=== PATIENT | male | born 1985 | race Caucasian/White ===

== ENCOUNTER 2024-08-06 03:41 | Inpatient (IN) | payer OTHER, SELFPAY ==
[2024-08-05 20:52] VITALS: BP 163/95
--- NOTE | 2024-08-05 20:52 | ED.GENMED ---
ED Provider Triage
<Aditi Tyson PA-C - Last Filed: 08/05/24 21:05>
-
Patient seen by provider in Triage?: Seen in Triage
A medical screening examination has been initiated by a qualified medical provider. Based on the assessment performed at this time, it has been determined that an emergent medical condition may exist and the patient has been informed that further
medical evaluation and possible additional diagnostic testing may be needed.
HPI: This is a medical evaluation conducted in person to initiate diagnostic evaluation and provide initial therapeutics. Please see further documentation by the treating clinician.
GENERAL: Alert , chronic ill-appearing, older than stated age
Poor dentition
ENT: No visible abnormalities
LUNGS: Diminished, mild tachypnea
Abdomen: Distended, indurated edema specially on the left lateral aspect which looks slightly pinkish which is nontender, no obvious hernia
Legs are covered by his pants but appear edematous
NEUROLOGICAL: Alert and oriented
SKIN: Skin intact. No visible changes.
PSYCH: Normal and appropriate interaction.
39 y/o M
h/ o hep c, opiate dependence on methadone
says over the past 3 weeks or so he has noticed swelling in his legs and into his abdomen
he htought maybe his abdomen was swollen because of a hernia but he has not really had pain
he has had some HOYOS
no chest pain, fever, vomiting, diarrhea
denies alcohol abuse, cirrhosis
Patient has a pitting edema in his abdomen that appears to have anasarca, slightly discolored on the left side, could be ascites due to liver failure or fluid overload due to CHF, will workup with labs and a CT, chest x-ray
History of Present Illness
<Aditi Tyson PA-C - Last Filed: 08/05/24 21:05>
General
Chief Complaint: Swelling
Time Seen by Provider: 08/05/24 23:18
<Anderson Gan DO - Last Filed: 08/06/24 02:12>
General
Source: patient
Exam Limitations: none
Nursing documentation reviewed up to this point in time: agreed with
History of Present Illness
History of Present Illness:
39-year-old male presents to the emergency department with swelling. Patient has a history of hepatitis C and does report some leg swelling normally but states that this is worse. For the last few weeks this is been worsening. Patient reports no
alcohol use. He does smoke tobacco and marijuana. Patient states that he has never had ascites before. He states that people have been telling him that his skin tone looks off. Patient states that he typically did not use IV heroin. He tended
to snorted instead. He is not sure where he got his hepatitis C from. He does state that he has spent a lot of time in custodial and thinks he might of picked it up there. Patient is on methadone. He moved to [place] recently to live with his dad
but he states that his dad recently. He is due to move to [place] once he wraps up his dad's estate. He is on disability and does not work
Vital signs are stable. Patient not hypoxic
Nursing note reviewed. I agree with nursing documentation up to this point in time.
Home Meds and allergies reviewed.
NUMBER AND COMPLEXITY OF PROBLEMS ADDRESSED AT THE ENCOUNTER
� Chronic conditions affecting care: Hepatitis C, IV drug abuse, on methadone, tobacco abuse
� Acute Exacerbation and/or Progression of Chronic Illness: Hepatitis C
� Differential Diagnosis includes: Hepatitis exacerbation, liver failure pancreatitis, gallbladder, mass, alcoholic hepatitis, cirrhosis, HA
AMOUNT AND/OR COMPLEXITY OF DATA TO BE REVIEWED AND ANALYZED
I performed an independent evaluation of the following and my interpretation is:
EKG: EKG shows sinus rhythm rate of of 87 with a prolonged QT interval of 575 ms.
Pulse Ox: Not Hypoxic
Bed Rubber: Sinus Rhythm
CT:
X-rays:
Ultrasound:
Laboratory Studies:
Other:
Review of other/old records:
Clinical information was obtained by an independent historian:
Prescriptions/Medications Considered but not given:
Further testing considered but not performed:
RISK OF COMPLICATIONS AND/OR MORBIDITY OR MORTALITY OF PATIENT MANAGEMENT
Social determinants of health affecting care: Poor social support. Patient lives alone with no familial support. He is on methadone. Does not have a family doctor.
Discussion with other providers: Hospitalist for admission to the hospital
Escalation of care including admission/observation vs risk of discharge considered: After being observed in the emergency department, patient is not stable for discharge. Patient will be admitted to the hospitalist service
CRITICAL CARE NOTE:
Critical care statement: A total of 30 minutes of critical care time was provided for this patient. This time is separate from time utilized to perform the aforementioned documented procedures. Aggregate critical care time includes only time
during which I was engaged in work directly related to the patient's care, as described above, whether at the bedside or elsewhere in the Emergency Department.
Total Time (exclusive of procedures):30
Update:
Past History
<Aditi Tyson PA-C - Last Filed: 08/05/24 21:05>
Past History
ED Past Medical History: Psychiatric (ADHD, bipolar)
Social History
Tobacco: Smoker
Drug: Former user (on methadone)
Living: with family
Review of Systems
<Anderson Gan DO - Last Filed: 08/06/24 02:12>
Review of Systems
Allergies reviewed?: Yes
All Other Systems: ROS reviewed and negative except as documented in HPI and ROS
Musculoskeletal: Reports edema
Neurological: Reports weakness
Hematologic/Lymphatic: Reports other (Swelling)
Psychiatric: Reports anxiety
Phy Exam
<Anderson Gan DO - Last Filed: 08/06/24 02:12>
General Physical Exam
General Presentation: no apparent distress
General age: appears older than age
General Skin: warm, dry and other (Jaundiced)
General Habitus: debilitated and poor hygiene
General Mental: alert
General Hydration: appears well hydrated
ENT Exam
ENT Exam: EOMI and normocephalic
Additional ENT: Poor dentition
Eye Exam
Eye Exam: PERRL and EOMI
Scleral Findings: icteric sclera: Bilateral
Cardiovascular Exam
Cardiovascular Exam: regular rate/rhythm
Pulmonary Exam
Pulmonary Exam: lungs clear and no respiratory distress
Gastrointestinal Exam
Gastrointestinal Exam: ascites, distended, hepatomegaly and other (Abdominal edema in addition to ascites)
Auscultation of Abdomen: normal
Liver Exam: ascites, edema of legs, hepatomegaly and jaundice
Course
<Aditi Tyson PA-C - Last Filed: 08/05/24 21:05>
Orders/Labs/Results
Orders:
Orders
08/05/24 20:57
Electrocardiogram (*1) Urgent
Reason for Study: Abdominal Pain
EKG- Treatment ONCE
08/05/24 23:36
Acetaminophen Urgent
Comment: ADD ON
Ammonia Urgent
C-Reactive Protein Urgent
Comment: ADD ON
Complete Blood Count/With Diff Urgent
Comprehensive Metabolic Panel Urgent
Erythrocyte Sed Rate Urgent
LDH Urgent
Comment: ADD ON
Lipase Urgent
NT-proBNP Urgent
08/05/24 23:54
Hepatitis A IgM Antibody Urgent
Hepatitis B Core Ab, IgM Urgent
Hepatitis B Surface Antibody Urgent
Hepatitis B Surface Antigen Urgent
Hepatitis C Antibody Urgent
08/05/24 23:55
Add On- LAB Urgent
Tests Added?: ESR, CRP
Lactic Acid Q4H
Comment: CANCEL 2nd LACTIC ACID IF 1st LACTIC ACID IS LESS THAN 2
Prothrombin Time Urgent
08/06/24 00:15
CR Chest - 2 Views Urgent
Reason For Exam: edema, hoyos
08/06/24 00:17
Hepatitis B Core Ab, Total Urgent
08/06/24 00:20
CT Abd/Pel (IV only)-DH only Urgent
Reason For Exam: anasarca; ;pitting edema, pain
08/06/24 03:55
Lactic Acid Q4H
Comment: CANCEL 2nd LACTIC ACID IF 1st LACTIC ACID IS LESS THAN 2
Abnormal Lab Results
08/05/24 08/06/24
23:36 00:17
RBC 3.79 L 10^6/uL
(4.70-6.10)
MCV 106.3 H fL
(80.0-94.0)
MCH 36.4 H pg
(27.0-31.0)
RDW 14.6 H %
(11.5-14.5)
Plt Count 88 L 10^3/uL
(130-400)
MPV 10.9 H fL
(7.4-10.4)
Absolute Lymphs (auto) 1.1 L 10^3/uL
(1.2-3.4)
Lymphocytes % 15.7 L %
(20.5-51.1)
ESR 49 H mm/hour
(0-20)
PT 19.8 H Sec
(11.4-14.6)
Sodium 133 L mmol/L
(135-145)
BUN 8 L mg/dl
(9-20)
Glucose 51 L* mg/dl
(70-99)
Calcium 8.1 L mg/dl
(8.4-10.2)
Total Bilirubin 4.9 H mg/dl
(0.2-1.3)
Ammonia < 9 L umol/L
(9-30)
C-Reactive Protein 26.80 H mg/L
(0.0-10.00)
Albumin 2.9 L g/dl
(3.5-5.0)
Acetaminophen < 10 L ug/ml
(10-30)
08/05/24 23:36
08/05/24 23:36
Vital Signs
Initial and Last Documented VS:
Initial Vital Signs
Temp Pulse Resp BP Pulse Ox
97.6 F 56 18 163/95 99
08/05/24 20:52 08/05/24 20:52 08/05/24 20:52 08/05/24 20:52 08/05/24 20:52
Last Documented Vital Signs
Temp Pulse Resp BP Pulse Ox
97.6 F 75 12 133/84 99
08/05/24 20:52 08/06/24 01:18 08/06/24 01:18 08/06/24 01:17 08/05/24 20:52
<Anderson Gan, DO - Last Filed: 08/06/24 02:12>
Orders/Labs/Results
Orders:
Orders
08/05/24 20:57
Electrocardiogram (*1) Urgent
Reason for Study: Abdominal Pain
EKG- Treatment ONCE
08/05/24 23:36
Acetaminophen Urgent
Comment: ADD ON
Ammonia Urgent
C-Reactive Protein Urgent
Comment: ADD ON
Complete Blood Count/With Diff Urgent
Comprehensive Metabolic Panel Urgent
Erythrocyte Sed Rate Urgent
LDH Urgent
Comment: ADD ON
Lipase Urgent
NT-proBNP Urgent
08/05/24 23:54
Hepatitis A IgM Antibody Urgent
Hepatitis B Core Ab, IgM Urgent
Hepatitis B Surface Antibody Urgent
Hepatitis B Surface Antigen Urgent
Hepatitis C Antibody Urgent
08/05/24 23:55
Add On- LAB Urgent
Tests Added?: ESR, CRP
Lactic Acid Q4H
Comment: CANCEL 2nd LACTIC ACID IF 1st LACTIC ACID IS LESS THAN 2
Prothrombin Time Urgent
08/06/24 00:15
CR Chest - 2 Views Urgent
Reason For Exam: edema, hoyos
08/06/24 00:17
Hepatitis B Core Ab, Total Urgent
08/06/24 00:20
CT Abd/Pel (IV only)-DH only Urgent
Reason For Exam: anasarca; ;pitting edema, pain
08/06/24 03:55
Lactic Acid Q4H
Comment: CANCEL 2nd LACTIC ACID IF 1st LACTIC ACID IS LESS THAN 2
Abnormal Lab Results
08/05/24 08/06/24
23:36 00:17
RBC 3.79 L 10^6/uL
(4.70-6.10)
MCV 106.3 H fL
(80.0-94.0)
MCH 36.4 H pg
(27.0-31.0)
RDW 14.6 H %
(11.5-14.5)
Plt Count 88 L 10^3/uL
(130-400)
MPV 10.9 H fL
(7.4-10.4)
Absolute Lymphs (auto) 1.1 L 10^3/uL
(1.2-3.4)
Lymphocytes % 15.7 L %
(20.5-51.1)
ESR 49 H mm/hour
(0-20)
PT 19.8 H Sec
(11.4-14.6)
Sodium 133 L mmol/L
(135-145)
BUN 8 L mg/dl
(9-20)
Glucose 51 L* mg/dl
(70-99)
Calcium 8.1 L mg/dl
(8.4-10.2)
Total Bilirubin 4.9 H mg/dl
(0.2-1.3)
Ammonia < 9 L umol/L
(9-30)
C-Reactive Protein 26.80 H mg/L
(0.0-10.00)
Albumin 2.9 L g/dl
(3.5-5.0)
Acetaminophen < 10 L ug/ml
(10-30)
08/05/24 23:36
08/05/24 23:36
Vital Signs
Initial and Last Documented VS:
Initial Vital Signs
Temp Pulse Resp BP Pulse Ox
97.6 F 56 18 163/95 99
08/05/24 20:52 08/05/24 20:52 08/05/24 20:52 08/05/24 20:52 08/05/24 20:52
Last Documented Vital Signs
Temp Pulse Resp BP Pulse Ox
97.6 F 75 12 133/84 99
08/05/24 20:52 08/06/24 01:18 08/06/24 01:18 08/06/24 01:17 08/05/24 20:52
<Anderson Gan DO - Last Filed: 08/06/24 02:12>
*Critical Care Note
Total Time (30-74mins, 75-104mins- exclusive of procedures): 30
<Anderson Gan DO - Last Filed: 08/06/24 02:12>
Update Note
Update Note:
IMPRESSION
Nodular cirrhotic liver. Large amount of ascites. Free fluid decreases sensitivity for inflammation. Varices. Mild splenomegaly.
Mild thickening of the small and large bowel. No pneumatosis or free air. This is probably due to low protein state/ascites (portal colopathy), other differential considerations include enterocolitis/infection less likely ischemic bowel or
inflammatory bowel disease.
Anasarca
Mild heterogeneity in the gallbladder may reflect sludge versus noncalcified gallstones, no biliary dilatation. Normal diameter appendix. Diverticulosis
ED Attending Note
<Aditi Tyson PA-C - Last Filed: 08/05/24 21:05>
-
Portions of this chart may have been created with voice recognition software.� Occasional wrong word or��sound alike� substitutions may have occurred due to the inherent limitations of voice recognition software.
Discharge Plan
Departure
Patient Disposition: Admit
Date of Disposition: 08/06/24
Time of Disposition: 02:05
Admit to: IMU
Presentation/result/management discussed w/ accepting MD/DO: Hospitalist
Discharge Problem:
Jaundice, Ascites, Prolonged QT interval, History of substance abuse, Tobacco abuse, Edema, Hypoglycemia
Prescriptions:
No Action
Medical Marijuana
1 inh inhalation QIDPRN PRN (Reason: mild pain/anxiety)
methadone liquid
150 mg PO DAILY@1100
Patient Comments:
08/05/24: Goes to [facility], unable to call and confirm dose at this time.
Interventions
Interventions:
*Risk Screen - Suicide Last Done: 08/05/24 20:52
*General Assessment Last Done: 08/05/24 20:52
*Neglect/Abuse Screening Last Done: 08/05/24 20:52
ED- Fall Risk Assessment Last Done: 08/06/24 00:26
*ED COVID-19 Vaccine History Last Done: 08/05/24 20:52
ED- Cardiac Assessment Last Done: 08/06/24 00:26
ED- Pulmonary Assessment Last Done: 08/06/24 00:26
ED-Skin Assessment Last Done: 08/06/24 00:26
Discharge Date and Time
Print Language: WALLISIAN
[2024-08-05 23:28] VITALS: BMI 36.2
[2024-08-05 23:45] VITALS: BP 154/89
[2024-08-06] VITALS (15 sets, daily range): BP systolic 71–146; BP diastolic 50–84; BMI 34.2
[2024-08-06 00:06] LABS: % Basophils 0.6 % (0-2); % Eosinophils 1.2 % (0-6); % Immature Granulocytes 0.3 % (0-0.5); % Lymphocytes 15.7 % (20.5-51.1); % Monocytes 8.7 % (1.7-9.3); % Neutrophils 73.5 % (42.2-75.2); Absolute Eosinophils 0.1 10^3/uL (0-0.7); Absolute Lymphocytes 1.1 10^3/uL (1.2-3.4); Absolute Monocytes 0.6 10^3/uL (0.1-0.6); Ammonia < 9 umol/L (9-30); Hematocrit 40.3 % (39.0-52.0); Hemoglobin 13.8 g/dL (13.0-18.0); Mean Corp Hgb Conc. 34.2 g/dL (33.0-37.0); Mean Corpuscular Hgb 36.4 pg (27.0-31.0); Mean Corpuscular Volume 106.3 fL (80.0-94.0); Mean Platelet Volume 10.9 fL (7.4-10.4); Nucleated Red Blood Cells % 0 % (-); Platelet Count 88 10^3/uL (130-400); Red Blood Cell Count 3.79 10^6/uL (4.70-6.10); Red Cell Dist. Width 14.6 % (11.5-14.5); White Blood Cell Count 6.8 10^3/uL (4.8-10.8)
[2024-08-06 00:11] LABS: ALT (SGPT) 30 U/L (0-50); AST (SGOT) 59 U/L (17-59); Albumin 2.9 g/dl (3.5-5.0); Alkaline Phosphatase 121 U/L (38-126); Blood Urea Nitrogen 8 mg/dl (9-20); Calcium 8.1 mg/dl (8.4-10.2); Carbon Dioxide 25 mmol/L (22-30); Chloride 99 mmol/L (98-107); Estimated Creatinine Clearance > 125 ml/min; Glucose 51 mg/dl (70-99); Lipase 171 U/L (23-300); Potassium 3.6 mmol/L (3.5-5.1); Sodium 133 mmol/L (135-145); Total Bilirubin 4.9 mg/dl (0.2-1.3); Total Protein 7.8 g/dl (6.3-8.2); eGFR > 60.00
[2024-08-06 00:17] LABS: NT-proBNP 354 pg/ml
[2024-08-06 00:30] LABS: Acetaminophen < 10 ug/ml (10-30); LDH 231 U/L (120-246)
[2024-08-06 00:37] LABS: INR 1.65; PT 19.8 Sec (11.4-14.6)
[2024-08-06 00:50] LABS: Erythrocyte Sed Rate 49 mm/hour (0-20)
[2024-08-06 01:14] LABS: Glucose - Point of Care 81 mg/dl (70-99)
[2024-08-06 01:17] LABS: Hepatitis B Surface Antigen Negative (Negative)
[2024-08-06 01:21] LABS: Hepatitis A IgM Antibody Negative (Negative)
[2024-08-06 01:35] LABS: Hepatitis B Surface Antibody Positive; Hepatitis C Antibody Reactive (Negative)
[2024-08-06 02:41] LABS: Hepatitis B Core Ab, Total Negative (Negative)
--- NOTE | 2024-08-06 03:24 | HPS.HSE ---
Family Physician
-
Family Physician: Malik Mcguire DO
Chief Complaint
-
Swelling, Jaundice
History of Present Illness
Patient is a 39y M with PMH significant for Hep C who presents to ED complaining of swelling and discoloration. Patient states that he has appreciated significant swelling in his legs and abdomen over the past couple of weeks. This has become
progressively worse in that time. He has some abdominal discomfort that seems to move about depending on his position. No fevers / chills, N/V/D. No chest pain or dyspnea.
Patient was diagnosed with Hep C in 2017 or 2018. He states that he has never sought treatment for this.
He is on methadone for history of opioid addiction (heroin). He has been mostly clean for the past 3-4 years - though he admits he relapsed briefly in February 2024 after his father .
He was at his methadone clinic today when the nurse there commented that he appeared jaundiced and recommended that he go to the ED.
Patient denies any prior history of jaundice, ascites, cirrhosis, etc.
Medical History
Past Medical History
Past Medical History: Reports Other
Additional Past Medical History:
Hepatitis C
Opioid Use Disorder
Past Surgical History: Reports None
Social History
Tobacco: Smoker (Current every day smoker. 1 ppd x 20 years.)
Alcohol: None
Drug: Former User (History of heroin use. Primarily intranasal but did use IVDA on multiple occasions. Last use February 2024.)
Family History
Family History: Not pertinent
Allergies / Home Medications
Allergies reflects when Allergies were last updated in [facility].
Home Medications with original date entered in [facility]
Allergy/Medication List:
Allergies
Allergy/AdvReac Type Severity Reaction Status Date / Time
No Known Allergies Allergy Verified 08/05/24 20:57
Home Medications
Medical Marijuana 1 inh inhalation QIDPRN PRN mild pain/anxiety 08/05/24
methadone 150 mg PO DAILY@1100 08/05/24
Review of Systems
-
History Source: Patient
A 12 point ROS was completed and negative except as noted: Yes
Constitutional: Reports Fatigue; Denies Fever or Chills
Respiratory: Denies Cough or Trouble Breathing
Cardiac: Denies Chest Pain or Palpitations
Abdomen/GI: Reports Abdominal Pain; Denies Nausea, Vomiting, Diarrhea, Bloody Stools or Black Stools
: Denies Dysuria or Frequency
Musculoskeletal: Reports Edema
Neurological: Denies Dizzy or Headache
Physical Exam
Vital Signs
Vital Signs
Temp Pulse Resp BP Pulse Ox
97.6 F 75 19 133/70 99
08/05/24 20:52 08/06/24 02:00 08/06/24 02:00 08/06/24 02:00 08/05/24 20:52
Physical Exam
General: Other (Chronically ill-appearing male who appears older than stated 39 years. No acute distress.)
HEENT: Other (Poor dentition. MMM. Neck supple.)
Respiratory: Clear; No Wheezes, Rales or Rhonchi
Cardiac: S1/S2, Regular Rhythm and Murmur (II/ NORMA)
GI: Other (Abdomen is markedly distended and firm with pos fluid wave. Indurated along the LLQ area. No rebound / guarding. Pos striae.)
Musculoskeletal: No Clubbing, No Cyanosis and Other (3-4+ pitting edema b/l LEs into the thighs.)
Skin: Jaundice
Neuro: AO x 3
Laboratory Results
-
08/05/24 23:36
08/05/24 23:36
Laboratory Results
PT 19.8 Sec (11.4-14.6) H 08/06/24 00:17
INR 1.65 08/06/24 00:17
Lactic Acid 2.0 mmol/L (0.7-2.0) 08/06/24 00:17
Total Bilirubin 4.9 mg/dl (0.2-1.3) H 08/05/24 23:36
AST 59 U/L (17-59) 08/05/24 23:36
ALT 30 U/L (0-50) 08/05/24 23:36
Alkaline Phosphatase 121 U/L (38-126) 08/05/24 23:36
Lipase 171 U/L (23-300) 08/05/24 23:36
Impression/Plan
-
A/P: Patient is a 39y M with PMH significant for Hep C and opioid use disorder who presents to ED complaining of progressive swelling and newly noted jaundice.
Cirrhosis with Ascites and Thrombocytopenia
- Admit for further evaluation and treatment.
- Cirrhosis newly appreciated and likely secondary to Hep C.
- IV ceftriaxone for now pending fluid analysis.
- IR eval for paracentesis - studies ordered.
- GI eval for additional recommendations.
- Begin diuretic regimen with IV Lasix daily and spironolactone for now.
- Follow I/Os, daily weights, etc.
- MELD-Na = 22.
Hepatitis C
- Initially diagnosed in 2016 - 2017 and likely secondary to prior IVDA.
- GI eval as noted above.
- Would benefit from treatment.
Opioid Use Disorder
- 3-4 years sober and then relapse in February 2024 after father's .
- States no use since that time.
- Follows regularly with methadone clinic.
- Continue methadone once dose confirmed.
DVT Prophylaxis: Lovenox
Code Status: Full
[2024-08-06] MEDS: ROCEPHIN 2000 MG IV (05:16)
[2024-08-06] MEDS: STERILE WATER FOR INJECTION 20 ML IV (05:16)
[2024-08-06 06:45] LABS: Hematocrit 33.9 % (39.0-52.0); Hemoglobin 11.5 g/dL (13.0-18.0); Mean Corp Hgb Conc. 33.9 g/dL (33.0-37.0); Red Blood Cell Count 3.11 10^6/uL (4.70-6.10); Red Cell Dist. Width 14.8 % (11.5-14.5)
[2024-08-06 07:27] LABS: ALT (SGPT) 26 U/L (0-50); AST (SGOT) 52 U/L (17-59); Albumin 2.4 g/dl (3.5-5.0); Alkaline Phosphatase 101 U/L (38-126); Blood Urea Nitrogen 8 mg/dl (9-20); Calcium 7.7 mg/dl (8.4-10.2); Carbon Dioxide 24 mmol/L (22-30); Chloride 102 mmol/L (98-107); Direct Bilirubin 1.7 mg/dl (0.0-0.4); Estimated Creatinine Clearance > 125 ml/min; Glucose 50 mg/dl (70-99); Potassium 3.7 mmol/L (3.5-5.1); Sodium 134 mmol/L (135-145); TSH Reflex To Free T4 4.64 uIU/ml (0.47-4.68); Total Bilirubin 4.4 mg/dl (0.2-1.3); eGFR > 60.00
[2024-08-06 08:01] LABS: Glucose - Point of Care 61 mg/dl (70-99)
--- NOTE | 2024-08-06 08:09 | PHANOTE ---
Addendum entered by Abbie Villa 08/06/24 10:30:
refax mr release form to clinic
Original Note:
med rec note- following up on a hold patient who goes to the [facility] in [facility] called [phone] to fax mr form over to [phone], awaiting fax of verification
--- NOTE | 2024-08-06 08:11 | CON.GI ---
Addendum entered and electronically signed by Aditi Jordan DO 08/06/24 10:59:
The patient was seen and examined by me independently in collaboration with the nurse practitioner.
Past medical history/social history/medications/allergies/family history reviewed.
Lab data and imaging data reviewed.
39 y.o. male with untreated HCV presents with new onset ascites and LE edema, imaging and labs consistent with decompensated cirrhosis. Reports that his father recently , living in his van. Plans to move to [place] with his mother.
Na 134, K 3.7, BUN 8, Cr. 0.7, Glu 50*, Tbili 4.4, Dbili 1.7, AST 52, ALT 26, Alk phos 101, Albumin 2.4, INR 1.65
WBC 7, Hgb 11.5, MCV 109, Plt 75
HAV IgM neg, HBsAg neg, HBcAb neg, HCV Ab+ (VL pending)
HBsAb positive (reflects immunity)
Acetaminophen level <10
Lipase 171
Vit. B12, Folate pending
TSH 4.64
A/P: Decompensated Cirrhosis likely 2/2 untreated HCV c/b thrombocytopenia and ascites
--MELD 3.0 = 21
-- Diagnostic paracentesis today- please obtain cell count, cytology, albumin, protein, will calculate SAAG
-BUN/Cr. WNL, start diuretics
-HCC surveillance with AFP + US/MRI q6 months
-Needs EGD for variceal screening-- outpatient
-Outpatient serologic workup for completeness. Acute hepatitis panel reflects immunity to HBV, should have HAV IgG checked to assess need for vaccination
-annual influenza vaccination
-pneumococcal vaccination
-Avoid NSAIDs
-No EtoH use
-Limit Tylenol use to 2g daily
-Avoidance of raw seafood and shellfish
Hypoglycemia-- concerning, unclear if due to decreased PO intake. No signs of acute liver failure. BS did improve with glucose.
Needs to establish care with Hepatology once he moves to [place]. Given his MELD >20, it is unclear if his degree of decompensation will benefit from treatment of his HCV, as studies suggest patients with advanced cirrhosis who receive DAA Therapy
may not achieve significant long-term improvement in liver function. Ideally, liver transplantation. Needs formal outpatient workup and eval prior to consideration of treatment.
Original Note:
Consultation
-
Date/Time Consultation Requested: 08/06/230
Date/Time Consultation Performed: 08/06/23 0810
Requesting Provider: Tevin Diallo DO
Performing Provider: DEDRA Hancock, Azra Jordan DO
Reason for Consultation: cirrhosis
Medical History
Chief Complaint / HPI
Chief Complaint: swelling
History of Present Illness:
Pt is a 39yo with hx hep C untreated diagnosed 2017, substance abuse on chronic methadone, prior IVDA, ADHD, depression/anxiety with admission with increased swelling and no recent medical care. In review with patient he has history of prior opioid
use, heroin use, and recent relapse with cocaine use in February after his fathers . He has had some social issues with loss of home and now living in in [facility] but plan to move to [place] with his mother. he has noted increased swelling
over last week or so and presents to ER for evaluation. On admission noted with abdominal and LE swelling with jaundice. CT pending with preliminary report with nodular cirrhotic liver and large amount of ascites, varcies, mild Splenomegaly.
thickening of large and small bowel with concern for colonopathy vs enterocolitis, ischemic or IBD. Labs noted with WBC 7, hbg 11.5, platelets 75,000, Na 134, glucose 50, bili 4.4, AST 52, ALT 26, alk phos 101, albumin 2.4, and INR 1.65.
Hepatitis panel noted with + Hep C ab and immunity to hep B.
At this time patient admits to occasional nausea and abdominal pressure with distention. denies dysphagia, GERD, diarrhea, constipation, blood or black in stools. Occasional NSAID use. No prior EGD/colon. No supplement use. No hx tattoos.
Nodular cirrhotic liver. Large amount of ascites. Free fluid decreases sensitivity for inflammation. Varices. Mild splenomegaly.
Mild thickening of the small and large bowel. No pneumatosis or free air. This is probably due to low protein state/ascites (portal colopathy), other differential considerations include enterocolitis/infection less likely ischemic bowel or
inflammatory bowel disease.
Past Medical History
Past Medical History: Other (hep C)
Social History
Tobacco: Smoker
Alcohol: None
Drug: Other (prior opioid, heroin, and recent cocaine use in February after of father)
Living: Alone (currently living in as family home for [employer]-- plan to move with mother in [place])
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
Family History
Family History: Other (father recent -- ? liver, vs kidney vs heart issues, no known hx other GI issues )
Allergies / Home Medications
Allergy/AdvReac Type Severity Reaction Status Date / Time
No Known Allergies Allergy Verified 08/05/24 20:57
�Medication �Instructions �Recorded
Medical Marijuana 1 inh inhalation QIDPRN PRN mild 08/05/24
pain/anxiety
methadone 150 mg PO DAILY@1100 08/05/24
Review of Systems
-
History Source: Patient
Constitutional: Reports Weight Gain and Fatigue
EENT: Reports No Symptoms
Respiratory: Reports Trouble Breathing
Abdomen/GI: Reports Abdominal Pain (with pressure) and Nausea
: Reports Dark Urine
Musculoskeletal: Reports No Symptoms
Skin: Reports No Symptoms, Itching and Other (LE swelling)
Neurological: Reports Weakness
Endocrine: Reports No Symptoms
Hematologic/Lymphatic: Reports No Symptoms
Vital Signs
Temp Pulse Resp BP Pulse Ox
97.6 F 85 20 132/70 99
08/05/24 20:52 08/06/24 08:04 08/06/24 06:45 08/06/24 06:00 08/06/24 04:00
Physical Exam
Exam
General: Other (appears with chronic illness and appears older than stated age )
HEENT: Normocephalic and Other (jaundice , poor dentician )
Respiratory: Clear
Cardiac: Regular Rhythm and Peripheral Edema
GI: Soft, Tender (minimal ) and Distended
Musculoskeletal: No Clubbing and No Cyanosis
Skin: Warm and Dry
Neuro: Awake, Alert and AO x 3
Psych: Calm
Results
WBC 7.0 10^3/uL (4.8-10.8) 08/06/24 05:16
Hgb 11.5 g/dL (13.0-18.0) L 08/06/24 05:16
Hct 33.9 % (39.0-52.0) L 08/06/24 05:16
MCV 109.0 fL (80.0-94.0) H 08/06/24 05:16
Plt Count 88 10^3/uL (130-400) L 08/05/24 23:36
Absolute Neuts (auto) 5.0 10^3/uL (1.4-6.5) 08/05/24 23:36
PT 19.8 Sec (11.4-14.6) H 08/06/24 00:17
INR 1.65 08/06/24 00:17
Sodium 134 mmol/L (135-145) L 08/06/24 05:16
Potassium 3.7 mmol/L (3.5-5.1) 08/06/24 05:16
Chloride 102 mmol/L (98-107) 08/06/24 05:16
Carbon Dioxide 24 mmol/L (22-30) 08/06/24 05:16
BUN 8 mg/dl (9-20) L 08/06/24 05:16
Creatinine 0.7 mg/dL (0.7-1.3) 08/06/24 05:16
Calcium 7.7 mg/dl (8.4-10.2) L 08/06/24 05:16
Total Bilirubin 4.4 mg/dl (0.2-1.3) H 08/06/24 05:16
AST 52 U/L (17-59) 08/06/24 05:16
ALT 26 U/L (0-50) 08/06/24 05:16
Alkaline Phosphatase 101 U/L (38-126) 08/06/24 05:16
Lipase 171 U/L (23-300) 08/05/24 23:36
Hepatitis A IgM Ab Negative (Negative) 08/06/24 00:17
Hep Bs Antibody Positive 08/06/24 00:17
Hep B Core Total Ab Negative (Negative) 08/06/24 00:17
Hep B Core IgM Ab Cancelled 08/06/24 00:17
Hepatitis C Antibody Reactive (Negative) 08/06/24 00:17
Diagnostic Image Results:
08/06/24- CXR- Unremarkable exam
08/06/24 CT a/p pending
(preliminary reading per ER
Nodular cirrhotic liver. Large amount of ascites. Free fluid decreases sensitivity for inflammation. Varices. Mild splenomegaly.
Mild thickening of the small and large bowel. No pneumatosis or free air. This is probably due to low protein state/ascites (portal colopathy), other differential considerations include enterocolitis/infection less likely ischemic bowel or
inflammatory bowel disease.
Anasarca
Mild heterogeneity in the gallbladder may reflect sludge versus noncalcified gallstones, no biliary dilatation. Normal diameter appendix. Diverticulosis
Prior GI Procedures:
EGD: none
Colonoscopy: none
Assessment / Plan
-
Pt is a 39yo with hx hep C untreated diagnosed 2017, substance abuse on chronic methadone, prior IVDA, ADHD, depression/anxiety with admission with increased swelling and no recent medical care. In review with patient he has history of prior opioid
use, heroin use, and recent relapse with cocaine use in February after his fathers . He has had some social issues with loss of home and now living in in [facility] but plan to move to [place] with his mother. he has noted increased swelling
over last week or so and presents to ER for evaluation. On admission noted with abdominal and LE swelling with jaundice. CT pending with preliminary report with nodular cirrhotic liver and large amount of ascites, varcies, mild Splenomegaly.
thickening of large and small bowel with concern for colonopathy vs enterocolitis, ischemic or IBD. Labs noted with WBC 7, hbg 11.5, platelets 75,000, na 134, glucose 50, bili 4.4, AST 52, ALT 26, alk phos 101, albumin 2.4, and INR 1.65.
Hepatitis panel noted with + Hep C ab and immunity to hep B.
-cirrhosis with decompensation with LE swelling/ascites
-CT with concern for large and small bowel swelling to colopathy
-hx untreated hep C
-hx substance abuse- prior opioid, heroin and relapse in February with cocaine- chronic methadone use
-thrombocytopenia
-hypoglycemia- persistent with low hbg A1C
-coagulopathy
-hypoalbuminemia
-macrocytic anemia
other med problems:
-ADHD
-anxiety/depression
-multiple social issue with recent loss of home/limited job/ of father
PLAN:
Etiology of symptoms with concern for cirrhosis with decompensation secondary to hep C, recent drug relapse, vs other
MELD 3.0 21
await final read of CT
agree with paracentesis for fluid analysis- rule out SBP or any component of cardiac cirrhosis
may need albumin pending volume of fluid removed
pt started Lasix 40mg and Spironolactone 25mg daily
monitor glucose/noted low hbg A1C- cont Rx per medical team with hypoglycemia on admission
change to 2 gram Na diet
check hep C RNA for viral load--discussed will likely need hep C treatment but requires OP labwork and approval to start therapy
will need OP serology work up and EGD
long discussion with patient -- father in February- relapse with short period of cocaine use. He is currently living in in family home and plan to move with mother to [place]. Discussed will need to decide if proceeding with GI follow
here in [place] or need to establish GI/hepatology care in [place] for hep C treatment and cirrhosis management-- he will discuss with mother and let us know
-
-
Thank you for consultation and allowing me to participate in the patient's care. Please call the exhibition organiser GI physician during the after hours with any questions or concerns.
[2024-08-06 08:16] LABS: Glucose - Point of Care 58 mg/dl (70-99)
[2024-08-06 08:34] LABS: Glucose - Point of Care 64 mg/dl (70-99)
[2024-08-06 08:34] LABS: Mean Platelet Volume 11.1 fL (7.4-10.4); Platelet Count 75 10^3/uL (130-400)
[2024-08-06] MEDS: DEXTROSE 50% SYRINGE 12.5 GRAMS IV (08:43)
[2024-08-06 08:58] LABS: Glycohemoglobin (HgbA1c) 3.5 % (4.0-5.6)
[2024-08-06 09:41] LABS: Glucose - Point of Care 92 mg/dl (70-99)
[2024-08-06 09:43] LABS: Iron 83 ug/dl (49-181); Magnesium 1.9 mg/dl (1.6-2.3); Phosphorus 3.3 mg/dl (2.5-4.5)
[2024-08-06 09:51] LABS: Percent Saturation 47 % (20-50); Total Iron Binding Capacity 176 ug/dl (261-462)
[2024-08-06] MEDS: ALDACTONE 25 MG PO (10:30)
[2024-08-06] MEDS: LASIX 40 MG IV (10:30)
[2024-08-06 10:49] LABS: Folate 2.9 ng/ml (2.76-20); Vitamin B12 791 pg/ml (239-931)
--- NOTE | 2024-08-06 12:48 | W.PN.UPDATE ---
Update Note
Progress Note Update
Seen and examined event of overnight physician
States of abdominal pain or discomfort. States of change in lower extremity and abdominal swelling for past few weeks.
States he used to use IV drug usage in the past. History of hepatitis C and never got treatment for it.
History of opioid abuse and on chronic methadone.
General: Other (Chronically ill-appearing male who appears older than stated 39 years. No acute distress.)
HEENT: Other (Poor dentition. MMM. Neck supple.)
Respiratory: Clear; No Wheezes, Rales or Rhonchi
Cardiac: S1/S2, Regular Rhythm and Murmur (II/ NORMA)
GI: Other (Abdomen is markedly distended and firm with pos fluid wave. Indurated along the LLQ area. No rebound / guarding. Pos striae.)
Musculoskeletal: No Clubbing, No Cyanosis and Other (3-4+ pitting edema b/l LEs into the thighs.)
Skin: Jaundice
Neuro: AO x 3
A/P: Patient is a 39y M with PMH significant for Hep C and opioid use disorder who presents to ED complaining of progressive swelling and newly noted jaundice.
Decompensated liver cirrhosis with Ascites and Thrombocytopenia
Anasarca 2/2 above
- Cirrhosis newly appreciated and likely secondary to Hep C.
- IR eval for paracentesis - studies ordered.
- GI eval for additional recommendations.
- Begin diuretic regimen with IV Lasix daily and spironolactone for now.
- Follow I/Os, daily weights, etc.
- ECHO EF of 65 to 70%. Normal regional wall motion. Normal right ventricular size and function. No significant valvular disease. Pleural effusion is present. Ascites present.
- Check chest ultrasound to assess for pleural effusion.
- will require EGD for variceal screening- per GI. Plan for outpatient.
Hepatitis C
- Initially diagnosed in 2017 - 2018 and likely secondary to prior IVDA.
- GI eval as noted above.
- Would benefit from treatment. Discussed patient prolonged period of time that he needs to seek establish care with financial analysis advisor as outpatient. Will need to be discussed if he would benefit from hepatitis C treatment and also need to be
considered for transplant evaluation at the [facility]. Patient verbalized understanding about intense follow-up upon discharge.
Opioid Use Disorder
Severely prolonged QTc
- 3-4 years sober and then relapse in February 2024 after father's .
- States no use since that time.
- Follows regularly with methadone clinic.
- Methadone dose confirmed. Prolonged QTc. Hold methadone. Oxycodone ordered. Trend EKG. Monitor on telemetry. Check magnesium and other electrolytes. Avoid any other QTc prolonging meds.
Hypoglycemia
-Improvement with aggressive hypoglycemic protocol
-Monitor POC for now. Last POC 92.
Anemia and thrombocytopenia secondary to liver cirrhosis
-Start patient on folic acid as levels were low.
-Continue to trend platelets.
DVT Prophylaxis: Lovenox
Code Status: Full
Long-term prognosis guarded.
[2024-08-06] MEDS: ROXICODONE 10 MG PO ×3 (13:47→23:33)
[2024-08-06] MEDS: FOLVITE 1 MG PO (13:47)
[2024-08-06] MEDS: MAGNESIUM SULFATE 100 IV (13:47)
[2024-08-06 14:10] LABS: Body Fluid Mononuclear 64.7 %; Body Fluid Polymorphonuclear 35.3 %; Body Fluid WBC 68 /CUMM
[2024-08-06 14:19] LABS: Body Fluid Albumin < 1.0 g/dl; Body Fluid Amylase < 30 U/L; Body Fluid LDH < 90 U/L; Body Fluid Protein < 2.0 g/dl
[2024-08-06 14:21] LABS: Body Fluid Second Tech ASW
--- NOTE | 2024-08-06 15:31 | PTCARENOTE ---
1520 Pt received from ED via stretcher AAOx3. Pt ambulated from stretcher to standing scale and then room with steady gait. Pt oriented to staff, environment and call light system. All needs met.
[2024-08-06] MEDS: LOVENOX 40 MG SC (17:13)
[2024-08-06] MEDS: NICODERM TRANSDERMAL 7 MG TRANSDERM (21:57)
[2024-08-06 22:24] LABS: Glucose - Point of Care 101 mg/dl (70-99)
[2024-08-07 03:15] VITALS: BP 114/58
--- NOTE | 2024-08-07 05:51 | PTCARENOTE ---
DEDRA Fenton made aware of critically long QTc result on EKG. Plan of care ongoing
[2024-08-07] MEDS: ROXICODONE 10 MG PO ×5 (05:53→22:43)
[2024-08-07 06:00] VITALS: BMI 34.4
[2024-08-07 06:57] LABS: Hematocrit 33.5 % (39.0-52.0); Hemoglobin 11.4 g/dL (13.0-18.0); Mean Corpuscular Hgb 36.5 pg (27.0-31.0); Mean Corpuscular Volume 107.4 fL (80.0-94.0); Mean Platelet Volume 10.6 fL (7.4-10.4); Platelet Count 60 10^3/uL (130-400); Red Blood Cell Count 3.12 10^6/uL (4.70-6.10); Red Cell Dist. Width 14.7 % (11.5-14.5); White Blood Cell Count 4.7 10^3/uL (4.8-10.8)
[2024-08-07 07:00] LABS: Glucose - Point of Care 72 mg/dl (70-99)
[2024-08-07 07:01] LABS: INR 1.89; PT 22.2 Sec (11.4-14.6)
[2024-08-07] MEDS: ALDACTONE 25 MG PO ×2 (07:24→09:41)
[2024-08-07] MEDS: LASIX 40 MG IV (07:24)
[2024-08-07] MEDS: FOLVITE 1 MG PO (07:24)
[2024-08-07 07:38] LABS: Marijuana Positive (Negative)
[2024-08-07 07:39] LABS: Amphetamines Negative (Negative); Barbiturates Negative (Negative); Benzodiazepines Negative (Negative); Buprenorphine Negative (Negative); Cocaine Negative (Negative); Methadone Positive (Negative); Methamphetamines Negative (Negative); Opiates Negative (Negative); Phencyclidine Negative (Negative); Tricyclic Antidepressants Negative (Negative)
[2024-08-07 07:51] VITALS: BP 117/57
[2024-08-07 07:59] LABS: ALT (SGPT) 23 U/L (0-50); AST (SGOT) 47 U/L (17-59); Albumin 2.1 g/dl (3.5-5.0); Alkaline Phosphatase 92 U/L (38-126); Blood Urea Nitrogen 8 mg/dl (9-20); Calcium 7.3 mg/dl (8.4-10.2); Carbon Dioxide 28 mmol/L (22-30); Chloride 100 mmol/L (98-107); Estimated Creatinine Clearance > 125 ml/min; Glucose 65 mg/dl (70-99); Potassium 3.6 mmol/L (3.5-5.1); Sodium 132 mmol/L (135-145); Total Bilirubin 3.3 mg/dl (0.2-1.3); Total Protein 6.2 g/dl (6.3-8.2); eGFR > 60.00
--- NOTE | 2024-08-07 08:54 | W.PN.GI.CBS2 ---
Today's Communication / Plan
-
Increase diuretics-- additional 25 mg Aldactone given (total of 50mg today). If INR continues to rise, give Vit. K (likely nutritional component). Monitor BS
Assessment / Plan
-
39 y.o. male with untreated HCV and polysubstance abuse (opoids, heroin) with recent relapse on methadone presents with new onset ascites and LE edema, imaging and labs consistent with decompensated cirrhosis.
Na 134, K 3.7, BUN 8, Cr. 0.7, Glu 50*, Tbili 4.4, Dbili 1.7, AST 52, ALT 26, Alk phos 101, Albumin 2.4, INR 1.65
WBC 7, Hgb 11.5, MCV 109, Plt 75
HAV IgM neg, HBsAg neg, HBcAb neg, HCV Ab+ (VL pending)
HBsAb positive (reflects immunity)
Acetaminophen level <10
Lipase 171
Vit. B12, Folate pending
TSH 4.64
Paracentesis (08/06):4L removed; Fluid WBC 68, 35 PMNs, Protein <2, Albumin <1, LDH <90, Amylase <30 --> High SAAG, low protein c/w portal HTN
A/P: Decompensated Cirrhosis likely 2/2 untreated HCV c/b thrombocytopenia and ascites
--MELD 3.0 = 22 (08/07)
-- s/p large volume diagnostic/therapeutic paracentesis on 08/06 with removal of 4L ascitic fluid, studies c/w portal HTN
-BUN/Cr. WNL, Started on aldactone 25 mg and lasix 40mg IV yesterday without much output, will give an additional 25 mg aldactone today
-HCC surveillance with AFP + US/MRI q6 months
-Needs EGD for variceal screening-- outpatient
-no evidence of encephalopathy
-INR increased from 1.65 --> 1.89, suspect there is a nutritional component, if continues to increase on next lab draw, recommend giving Vit. K
-Outpatient serologic workup for completeness. Acute hepatitis panel reflects immunity to HBV, should have HAV IgG checked to assess need for vaccination
-annual influenza vaccination
-pneumococcal vaccination
-Avoid NSAIDs
-No EtoH use
-Limit Tylenol use to 2g daily
-Avoidance of raw seafood and shellfish
#Hypoglycemia-- concerning, but per patient decreased PO intake cecil. leading up to current admission due to anxiety about medical health and losing his father recently
-improved with PO since arrival
-no signs of acute liver failure
-PO is somewhat challenging due to his dentition; discussed cirrhotic diet, need for high protein, late night snack*
#Prolonged QTc
-Methadone held
Needs to establish care with Hepatology once he moves to [place]. Given his MELD >20, it is unclear if his degree of decompensation will benefit from treatment of his HCV, as studies suggest patients with advanced cirrhosis who receive DAA Therapy
may not achieve significant long-term improvement in liver function. Ideally, liver transplantation. Needs formal outpatient workup and eval prior to consideration of treatment. He expressed understanding and feels committed to establishing
long-term care in [place].
Subjective
Subjective
Date of Service: August 07, 2024
Patient seen in follow-up. He was started on diuretics yesterday without much improvement in lower extremity edema. He does not feel his urinary frequency has increased since starting the medication. S/p paracentesis yesterday, ascitic fluid
studies neg for SBP, consistent with portal HTN. He admits to not eating the day he arrived to the hospital due to anxiety. Typically only eats 1-2 meals per day, struggles with food due to his dentition, missing multiple teeth. He states he was in
the process of getting his dental health addressed when his father .
Objective
Data Reviewed
Laboratory Data:
Laboratory Results
08/07/24 06:32
08/07/24 06:32
Laboratory Results
PT 22.2 Sec (11.4-14.6) H 08/07/24 06:32
INR 1.89 08/07/24 06:32
Phosphorus 3.3 mg/dl (2.5-4.5) 08/06/24 05:16
Magnesium 1.9 mg/dl (1.6-2.3) 08/06/24 05:16
Total Bilirubin 3.3 mg/dl (0.2-1.3) H 08/07/24 06:32
AST 47 U/L (17-59) 08/07/24 06:32
ALT 23 U/L (0-50) 08/07/24 06:32
Alkaline Phosphatase 92 U/L (38-126) 08/07/24 06:32
Lipase 171 U/L (23-300) 08/05/24 23:36
Vital Signs and I&O:
Vital Signs
Temp Pulse Resp BP Pulse Ox
97.5 F 72 17 117/57 98
08/07/24 07:51 08/07/24 07:51 08/07/24 07:51 08/07/24 07:51 08/07/24 07:51
I&O
08/06/24 08/07/24 08/08/24
06:59 06:59 06:59
Intake Total 720 / 720
Balance 720 / 720
Physical Exam
Physical Exam
HEENT: Other (+poor dentition)
GI: Soft, Distended and Non Tender (mildly tender to palpation diffusely, no rebound or guarding)
Extremities: Edema
Neuro: Other (no asterixes)
[2024-08-07 09:29] LABS: LDH 188 U/L (120-246)
[2024-08-07 11:05] LABS: Glucose - Point of Care 115 mg/dl (70-99)
[2024-08-07 11:26] LABS: Fentanyl, Urine Negative (Negative)
[2024-08-07 11:32] VITALS: BP 104/52
--- NOTE | 2024-08-07 11:34 | W.PN.HOSP.TC ---
Today's Communication/Plan
-
diuresis
trend Qtc
LE doppler
trend INR
Assessment / Plan
Assessment / Plan
General: Other (Chronically ill-appearing male who appears older than stated 39 years. No acute distress.)
HEENT: Other (Poor dentition. MMM. Neck supple.)
Respiratory: Clear; No Wheezes, Rales or Rhonchi
Cardiac: S1/S2, Regular Rhythm and Murmur (II/ NORMA)
GI: Other (Abdomen is markedly distended and firm with pos fluid wave. Indurated along the LLQ area. No rebound / guarding. Pos striae.)
Musculoskeletal: No Clubbing, No Cyanosis and Other (3-4+ pitting edema b/l LEs into the thighs.)
Skin: Jaundice
Neuro: AO x 3
A/P: Patient is a 39y M with PMH significant for Hep C and opioid use disorder who presents to ED complaining of progressive swelling and newly noted jaundice.
Decompensated liver cirrhosis with Ascites and Thrombocytopenia
Anasarca 2/2 above
- Cirrhosis newly appreciated and likely secondary to Hep C.
- IR eval for paracentesis -status post 4 L of fluid removed. Consistent with portal hypertension secondary to liver cirrhosis.
- GI eval for additional recommendations.
- Begin diuretic regimen with IV Lasix daily and spironolactone for now. Aldactone dose increased to 50 mg.
- Follow I/Os, daily weights, etc.
- ECHO EF of 65 to 70%. Normal regional wall motion. Normal right ventricular size and function. No significant valvular disease. Pleural effusion is present. Ascites present.
- Check chest ultrasound to assess for pleural effusion. Discussed finding with interventional radiology and not much right-sided pleural effusion in the same small perihepatic ascites. No need for thoracentesis.
- will require EGD for variceal screening- per GI. Plan for outpatient.
- Venous doppler LE. If negative for DVT-Start compression therapy.
Elevated INR secondary to decompensated liver cirrhosis
-INR 1.86. Per GI recommending vitamin K if persistent uptrend noted.
Hepatitis C
- Initially diagnosed in 2016 - 2017 and likely secondary to prior IVDA.
- GI eval as noted above.
- Would benefit from treatment. Discussed patient prolonged period of time that he needs to seek establish care with director marketing as outpatient. Will need to be discussed if he would benefit from hepatitis C treatment and also need to be
considered for transplant evaluation at the [facility]. Patient verbalized understanding about intense follow-up upon discharge.
Opioid Use Disorder
Severely prolonged QTc
- 3-4 years sober and then relapse in February 2024 after father's .
- States no use since that time.
- Follows regularly with methadone clinic.
- Methadone dose confirmed. Prolonged QTc which is improving.. Hold methadone. Oxycodone ordered. Trend EKG. Monitor on telemetry. Check magnesium and other electrolytes. Avoid any other QTc prolonging meds.
Hypoglycemia
-Improvement with aggressive hypoglycemic protocol
-Monitor POC for now. L
Anemia and thrombocytopenia secondary to liver cirrhosis
-Start patient on folic acid as levels were low.
-Continue to trend platelets.
DVT Prophylaxis: Lovenox
Code Status: Full
Long-term prognosis guarded.
Anticipated Discharge: > 48 hours
Subjective/Interval History
-
Date of Service: August 07, 2024
Tolerating diet
not much abd pain
Objective Data
-
Labs:
Laboratory Results
08/07/24
06:32
WBC 4.7 L
Hgb 11.4 L
Hct 33.5 L
Plt Count 60 L
PT 22.2 H
INR 1.89
Sodium 132 L
Potassium 3.6
Chloride 100
Carbon Dioxide 28
BUN 8 L
Creatinine 0.7
Glucose 65 L
Calcium 7.3 L
Total Bilirubin 3.3 H
AST 47
ALT 23
Alkaline Phosphatase 92
Vital Signs:
Vital Signs
Temp Pulse Resp BP Pulse Ox
98.2 F 59 17 104/52 96
08/07/24 11:32 08/07/24 11:32 08/07/24 11:32 08/07/24 11:32 08/07/24 11:32
I&O
08/06/24 08/07/24 08/08/24
06:59 06:59 06:59
Intake Total 720 / 720
Balance 720 / 720
Data Reviewed
-
Total Time Spent with Patient (in minutes): 55
--- NOTE | 2024-08-07 15:10 | CM ---
Met with patient to obtain information for assessment. Patient stated that he lives in an with two steps to enter. He relayed that he will soon most likely move to [place] as his mother lives there. He described himself as independent with all of
his ADLs, personal care, dressing and bathing. 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 He goes outpatient for Methadone management. He drives and can get himself to all of his appointments and do all of his own shopping.
He has no DME.
He has a prescription plan and uses, [facility] for all of his medications.
He has never had VN.
Patient has never been to a SNF.
Patient stated that he would like to return home when stable for discharge.
Plan: Case management will continue to follow and assist with discharge planning. Home when medically cleared.
[2024-08-07 15:23] VITALS: BP 113/56
[2024-08-07 16:45] LABS: Glucose - Point of Care 111 mg/dl (70-99)
[2024-08-07] MEDS: LOVENOX 40 MG SC (18:18)
[2024-08-07 19:45] VITALS: BP 116/62
[2024-08-07 21:52] LABS: Glucose - Point of Care 138 mg/dl (70-99)
[2024-08-07] MEDS: NICODERM TRANSDERMAL 7 MG TRANSDERM (22:43)
[2024-08-07 23:10] VITALS: BP 116/60
[2024-08-08 03:25] VITALS: BP 119/68
[2024-08-08 06:00] VITALS: BMI 34.6
[2024-08-08 07:01] LABS: % Basophils 1.2 % (0-2); % Eosinophils 3.9 % (0-6); % Immature Granulocytes 0.2 % (0-0.5); % Lymphocytes 19.6 % (20.5-51.1); % Monocytes 12.8 % (1.7-9.3); % Neutrophils 62.3 % (42.2-75.2); Absolute Basophils 0.1 10^3/uL (0-0.2); Absolute Eosinophils 0.2 10^3/uL (0-0.7); Absolute Lymphocytes 0.8 10^3/uL (1.2-3.4); Absolute Monocytes 0.5 10^3/uL (0.1-0.6); Absolute Neutrophils 2.6 10^3/uL (1.4-6.5); Hemoglobin 11.3 g/dL (13.0-18.0); Mean Corp Hgb Conc. 35.3 g/dL (33.0-37.0); Mean Corpuscular Hgb 37.8 pg (27.0-31.0); Mean Platelet Volume 10.6 fL (7.4-10.4); Nucleated Red Blood Cells % 0 % (-); Platelet Count 53 10^3/uL (130-400); Red Blood Cell Count 2.99 10^6/uL (4.70-6.10); Red Cell Dist. Width 14.7 % (11.5-14.5); White Blood Cell Count 4.1 10^3/uL (4.8-10.8)
[2024-08-08 07:04] LABS: Glucose - Point of Care 87 mg/dl (70-99)
[2024-08-08 07:08] LABS: INR 1.76
[2024-08-08 08:01] VITALS: BP 121/61
[2024-08-08] MEDS: FOLVITE 1 MG PO (08:36)
[2024-08-08] MEDS: ALDACTONE 50 MG PO ×2 (08:36→14:37)
[2024-08-08] MEDS: LASIX 40 MG IV (08:37)
[2024-08-08] MEDS: ROXICODONE 10 MG PO ×4 (08:45→23:26)
[2024-08-08 09:11] LABS: ALT (SGPT) 23 U/L (0-50); AST (SGOT) 49 U/L (17-59); Albumin 2.1 g/dl (3.5-5.0); Alkaline Phosphatase 94 U/L (38-126); Blood Urea Nitrogen 8 mg/dl (9-20); Calcium 7.4 mg/dl (8.4-10.2); Carbon Dioxide 28 mmol/L (22-30); Chloride 99 mmol/L (98-107); Estimated Creatinine Clearance > 125 ml/min; Glucose 83 mg/dl (70-99); Potassium 3.5 mmol/L (3.5-5.1); Sodium 131 mmol/L (135-145); Total Bilirubin 2.9 mg/dl (0.2-1.3); Total Protein 6.2 g/dl (6.3-8.2); eGFR > 60.00
[2024-08-08 11:18] VITALS: BP 119/67
[2024-08-08 11:38] LABS: Glucose - Point of Care 133 mg/dl (70-99)
--- NOTE | 2024-08-08 12:01 | W.PN.HOSP.TC ---
Today's Communication/Plan
-
diuretics
Trend Qtc-hold methadone
check mag level
OOB
Assessment / Plan
Assessment / Plan
General: Other (Chronically ill-appearing male who appears older than stated 39 years. No acute distress.)
HEENT: Other (Poor dentition. MMM. Neck supple.)
Respiratory: Clear; No Wheezes, Rales or Rhonchi
Cardiac: S1/S2, Regular Rhythm and Murmur (II/ NORMA)
GI: Other (Abdomen is markedly distended and firm with pos fluid wave. Indurated along the LLQ area. No rebound / guarding. Pos striae.)
Musculoskeletal: No Clubbing, No Cyanosis and Other (3-4+ pitting edema b/l LEs into the thighs.)
Skin: Jaundice
Neuro: AO x 3
A/P: Patient is a 39y M with PMH significant for Hep C and opioid use disorder who presents to ED complaining of progressive swelling and newly noted jaundice.
Decompensated liver cirrhosis with Ascites and Thrombocytopenia
Anasarca 2/2 above
- Cirrhosis newly appreciated and likely secondary to Hep C.
- IR eval for paracentesis -status post 4 L of fluid removed. Consistent with portal hypertension secondary to liver cirrhosis.
- GI eval for additional recommendations.
- Begin diuretic regimen with IV Lasix daily and spironolactone for now. Aldactone dose increased to 50 mg. May need additional lasix but hyponatremia limiting factor.
- Follow I/Os, daily weights, etc.
- ECHO EF of 65 to 70%. Normal regional wall motion. Normal right ventricular size and function. No significant valvular disease. Pleural effusion is present. Ascites present.
- Check chest ultrasound to assess for pleural effusion. Discussed finding with interventional radiology and not much right-sided pleural effusion in the same small perihepatic ascites. No need for thoracentesis.
- will require EGD for variceal screening- per GI. Plan for outpatient.
- Venous doppler LE neg. Compression therapy.
Elevated INR secondary to decompensated liver cirrhosis
-INR mild downtrend 1.76. Per GI recommending vitamin K if persistent uptrend noted.
Hepatitis C
- Initially diagnosed in 2016 - 2017 and likely secondary to prior IVDA.
- GI eval as noted above.
- Would benefit from treatment. Discussed patient prolonged period of time that he needs to seek establish care with lodge officer as outpatient. Will need to be discussed if he would benefit from hepatitis C treatment and also need to be
[facility] Patient verbalized understanding about intense follow-up upon discharge.
Opioid Use Disorder
Severely prolonged QTc
- 3-4 years sober and then relapse in February 2024 after father's .
- States no use since that time.
- Follows regularly with methadone clinic.
- Methadone dose confirmed. Prolonged QTc which is improving.. Hold methadone. Oxycodone ordered. Trend EKG. Monitor on telemetry. Check magnesium and other electrolytes. Avoid any other QTc prolonging meds.
Hypoglycemia
-Improvement with aggressive hypoglycemic protocol
-Monitor POC for now.
Anemia and thrombocytopenia secondary to liver cirrhosis
-Start patient on folic acid as levels were low.
-Continue to trend platelets.
DVT Prophylaxis: scds. hold lovenox
Code Status: Full
Will provide with OP PCP resource for closer follow up.
Long-term prognosis guarded.
Anticipated Discharge: 24 - 48 hours
Subjective/Interval History
-
Date of Service: August 08, 2024
tolerating diet
states of intermittent abd discomfort
Objective Data
-
Labs:
Laboratory Results
08/08/24
06:45
WBC 4.1 L
Hgb 11.3 L
Hct 32.0 L
Plt Count 53 L
PT 21.0 H
INR 1.76
Sodium 131 L
Potassium 3.5
Chloride 99
Carbon Dioxide 28
BUN 8 L
Creatinine 0.7
Glucose 83
Calcium 7.4 L
Total Bilirubin 2.9 H
AST 49
ALT 23
Alkaline Phosphatase 94
Vital Signs:
Vital Signs
Temp Pulse Resp BP Pulse Ox
97.8 F 67 16 119/67 96
08/08/24 11:18 08/08/24 11:18 08/08/24 11:18 08/08/24 11:18 08/08/24 11:18
I&O
08/07/24 08/08/24 08/09/24
06:59 06:59 06:59
Intake Total 720 / 720 840 / 840
Balance 720 / 720 840 / 840
Data Reviewed
-
Total Time Spent with Patient (in minutes): 55
[2024-08-08 13:18] LABS: Magnesium 1.9 mg/dl (1.6-2.3)
--- NOTE | 2024-08-08 13:59 | W.PN.GI.CBS2 ---
Today's Communication / Plan
-
Cr stable
Will increase aldactone to 100mg daily and continue lasix 40g daily
Give additional aldactone 50mg today then 100mg tomorrow
Check rpt CMP
Assessment / Plan
-
39 y.o. male with untreated HCV and polysubstance abuse (opoids, heroin) with recent relapse on methadone presents with new onset ascites and LE edema, imaging and labs consistent with decompensated cirrhosis.
Na 134, K 3.7, BUN 8, Cr. 0.7, Glu 50*, Tbili 4.4, Dbili 1.7, AST 52, ALT 26, Alk phos 101, Albumin 2.4, INR 1.65
WBC 7, Hgb 11.5, MCV 109, Plt 75
HAV IgM neg, HBsAg neg, HBcAb neg, HCV Ab+ (VL pending)
HBsAb positive (reflects immunity)
Acetaminophen level <10
Lipase 171
Vit. B12, Folate pending
TSH 4.64
Paracentesis (08/06):4L removed; Fluid WBC 68, 35 PMNs, Protein <2, Albumin <1, LDH <90, Amylase <30 --> High SAAG, low protein c/w portal HTN
A/P: Decompensated Cirrhosis likely 2/2 untreated HCV c/b thrombocytopenia and ascites
--MELD 3.0 = 22 (08/07)
-- s/p large volume diagnostic/therapeutic paracentesis on 08/06 with removal of 4L ascitic fluid, studies c/w portal HTN
-BUN/Cr. WNL, Started on aldactone 25 mg and lasix 40mg IV yesterday without much output, will give an additional 25 mg aldactone today
-HCC surveillance with AFP + US/MRI q6 months
-Needs EGD for variceal screening-- outpatient
-no evidence of encephalopathy
-INR increased from 1.65 --> 1.89, suspect there is a nutritional component, improved to 1.76. Encourage POs, maintain nutrition
-Outpatient serologic workup for completeness. Acute hepatitis panel reflects immunity to HBV, should have HAV IgG checked to assess need for vaccination
-annual influenza vaccination
-pneumococcal vaccination
-Avoid NSAIDs
-No EtoH use
-Limit Tylenol use to 2g daily
-Avoidance of raw seafood and shellfish
#Hypoglycemia-- concerning, but per patient decreased PO intake cecil. leading up to current admission due to anxiety about medical health and losing his father recently
-improved with PO since arrival
-no signs of acute liver failure
-PO is somewhat challenging due to his dentition; discussed cirrhotic diet, need for high protein, late night snack*
#Prolonged QTc
-Methadone held
Needs to establish care with Hepatology once he moves to [place]. Given his MELD >20, it is unclear if his degree of decompensation will benefit from treatment of his HCV, as studies suggest patients with advanced cirrhosis who receive DAA Therapy
may not achieve significant long-term improvement in liver function. Ideally, liver transplantation. Needs formal outpatient workup and eval prior to consideration of treatment. He expressed understanding and feels committed to establishing
long-term care in [place].
Subjective
Subjective
Date of Service: August 08, 2024
Resting in bed. Offers no complaints.
Objective
Data Reviewed
Laboratory Data:
Laboratory Results
08/08/24 06:45
08/08/24 06:45
Laboratory Results
PT 21.0 Sec (11.4-14.6) H 08/08/24 06:45
INR 1.76 08/08/24 06:45
Phosphorus 3.3 mg/dl (2.5-4.5) 08/06/24 05:16
Magnesium 1.9 mg/dl (1.6-2.3) 08/08/24 06:45
Total Bilirubin 2.9 mg/dl (0.2-1.3) H 08/08/24 06:45
AST 49 U/L (17-59) 08/08/24 06:45
ALT 23 U/L (0-50) 08/08/24 06:45
Alkaline Phosphatase 94 U/L (38-126) 08/08/24 06:45
Lipase 171 U/L (23-300) 08/05/24 23:36
Vital Signs and I&O:
Vital Signs
Temp Pulse Resp BP Pulse Ox
97.8 F 67 16 119/67 96
08/08/24 11:18 08/08/24 11:18 08/08/24 11:18 08/08/24 11:18 08/08/24 11:18
I&O
08/07/24 08/08/24 08/09/24
06:59 06:59 06:59
Intake Total 720 / 720 840 / 840
Balance 720 / 720 840 / 840
Physical Exam
Physical Exam
GI: Soft, Distended and Non Tender
Extremities: Edema
[2024-08-08] MEDS: MAGNESIUM SULFATE 100 IV (14:34)
[2024-08-08 15:22] VITALS: BP 123/63
--- NOTE | 2024-08-08 16:37 | CM ---
Met with patient at bedside; [facility] info provided per Attending's request
[2024-08-08 16:56] LABS: Glucose - Point of Care 115 mg/dl (70-99)
[2024-08-08 19:00] VITALS: BP 108/61
[2024-08-08] MEDS: NICODERM TRANSDERMAL 7 MG TRANSDERM (21:25)
[2024-08-08 21:28] LABS: Glucose - Point of Care 120 mg/dl (70-99)
[2024-08-08 23:00] VITALS: BP 118/61
[2024-08-09 03:00] VITALS: BP 125/66
[2024-08-09] MEDS: ROXICODONE 10 MG PO ×5 (04:03→22:39)
[2024-08-09 06:00] VITALS: BMI 34.3
[2024-08-09 07:18] LABS: INR 1.77; PT 20.8 Sec (11.4-14.6)
[2024-08-09 07:21] LABS: % Basophils 1.2 % (0-2); % Eosinophils 4.8 % (0-6); % Immature Granulocytes 0.5 % (0-0.5); % Monocytes 13.3 % (1.7-9.3); % Neutrophils 56.2 % (42.2-75.2); Absolute Basophils 0.1 10^3/uL (0-0.2); Absolute Eosinophils 0.2 10^3/uL (0-0.7); Absolute Monocytes 0.6 10^3/uL (0.1-0.6); Absolute Neutrophils 2.4 10^3/uL (1.4-6.5); Hematocrit 30.9 % (39.0-52.0); Hemoglobin 11.1 g/dL (13.0-18.0); Mean Corp Hgb Conc. 35.9 g/dL (33.0-37.0); Mean Corpuscular Volume 105.8 fL (80.0-94.0); Mean Platelet Volume 11.4 fL (7.4-10.4); Nucleated Red Blood Cells % 0 % (-); Platelet Count 54 10^3/uL (130-400); Red Blood Cell Count 2.92 10^6/uL (4.70-6.10); Red Cell Dist. Width 14.4 % (11.5-14.5); White Blood Cell Count 4.2 10^3/uL (4.8-10.8)
[2024-08-09 07:34] LABS: ALT (SGPT) 22 U/L (0-50); AST (SGOT) 43 U/L (17-59); Albumin 1.9 g/dl (3.5-5.0); Alkaline Phosphatase 88 U/L (38-126); Blood Urea Nitrogen 7 mg/dl (9-20); Calcium 7.3 mg/dl (8.4-10.2); Carbon Dioxide 30 mmol/L (22-30); Chloride 100 mmol/L (98-107); Estimated Creatinine Clearance > 125 ml/min; Glucose 89 mg/dl (70-99); Potassium 3.7 mmol/L (3.5-5.1); Sodium 131 mmol/L (135-145); Total Bilirubin 1.9 mg/dl (0.2-1.3); eGFR > 60.00
[2024-08-09 08:02] VITALS: BP 120/67
[2024-08-09 08:14] LABS: Glucose - Point of Care 103 mg/dl (70-99)
[2024-08-09 08:54] LABS: HCV Quant by NAAT IU/mL 222000 IU/mL; HCV Quant by NAAT Interp Detected (Not Detected); HCV Quant by NAAT Log IU/mL 5.35 log IU/mL
[2024-08-09] MEDS: FOLVITE 1 MG PO (09:02)
[2024-08-09] MEDS: ALDACTONE 100 MG PO (09:02)
[2024-08-09] MEDS: LASIX 40 MG IV (09:03)
[2024-08-09] MEDS: FLUSH (NSS) 2 FLUSH IV (09:05)
--- NOTE | 2024-08-09 10:04 | W.PN.GI.CBS2 ---
Today's Communication / Plan
-
Continue Lasix 40mg/Aldactone 100mg daily
BMP stable
I suggested pt f/u with [facility] prior to leaving for [place] to reinforce fpc plan and needs- pt was agreeable
F/U with Dr Jordan, contact info added to d/c instructions when he leaves
Assessment / Plan
-
39 y.o. male with untreated HCV and polysubstance abuse (opoids, heroin) with recent relapse on methadone presents with new onset ascites and LE edema, imaging and labs consistent with decompensated cirrhosis.
Na 134, K 3.7, BUN 8, Cr. 0.7, Glu 50*, Tbili 4.4, Dbili 1.7, AST 52, ALT 26, Alk phos 101, Albumin 2.4, INR 1.65
WBC 7, Hgb 11.5, MCV 109, Plt 75
HAV IgM neg, HBsAg neg, HBcAb neg, HCV Ab+ (VL pending)
HBsAb positive (reflects immunity)
Acetaminophen level <10
Lipase 171
Vit. B12, Folate pending
TSH 4.64
Paracentesis (08/06):4L removed; Fluid WBC 68, 35 PMNs, Protein <2, Albumin <1, LDH <90, Amylase <30 --> High SAAG, low protein c/w portal HTN
A/P: Decompensated Cirrhosis likely 2/2 untreated HCV c/b thrombocytopenia and ascites
--MELD 3.0 = 22 (08/07)
-- s/p large volume diagnostic/therapeutic paracentesis on 08/06 with removal of 4L ascitic fluid, studies c/w portal HTN
-BUN/Cr. WNL, Started on aldactone 25 mg and lasix 40mg IV yesterday without much output, will give an additional 25 mg aldactone today
-HCC surveillance with AFP + US/MRI q6 months
-Needs EGD for variceal screening-- outpatient
-no evidence of encephalopathy
-INR increased from 1.65 --> 1.89, suspect there is a nutritional component, improved to 1.76. Encourage POs, maintain nutrition
-Outpatient serologic workup for completeness. Acute hepatitis panel reflects immunity to HBV, should have HAV IgG checked to assess need for vaccination
-annual influenza vaccination
-pneumococcal vaccination
-Avoid NSAIDs
-No EtoH use
-Limit Tylenol use to 2g daily
-Avoidance of raw seafood and shellfish
#Hypoglycemia-- concerning, but per patient decreased PO intake cecil. leading up to current admission due to anxiety about medical health and losing his father recently
-improved with PO since arrival
-no signs of acute liver failure
-PO is somewhat challenging due to his dentition; discussed cirrhotic diet, need for high protein, late night snack*
#Prolonged QTc
-Methadone held
Needs to establish care with Hepatology once he moves to [place]. Given his MELD >20, it is unclear if his degree of decompensation will benefit from treatment of his HCV, as studies suggest patients with advanced cirrhosis who receive DAA Therapy
may not achieve significant long-term improvement in liver function. Ideally, liver transplantation. Needs formal outpatient workup and eval prior to consideration of treatment. He expressed understanding and feels committed to establishing
long-term care in [place].
Subjective
Subjective
Date of Service: August 09, 2024
No complaints
Objective
Data Reviewed
Laboratory Data:
Laboratory Results
08/09/24 06:16
08/09/24 06:16
Laboratory Results
PT 20.8 Sec (11.4-14.6) H 08/09/24 06:16
INR 1.77 08/09/24 06:16
Phosphorus 3.3 mg/dl (2.5-4.5) 08/06/24 05:16
Magnesium 1.9 mg/dl (1.6-2.3) 08/08/24 06:45
Total Bilirubin 1.9 mg/dl (0.2-1.3) H D 08/09/24 06:16
AST 43 U/L (17-59) 08/09/24 06:16
ALT 22 U/L (0-50) 08/09/24 06:16
Alkaline Phosphatase 88 U/L (38-126) 08/09/24 06:16
Lipase 171 U/L (23-300) 08/05/24 23:36
Vital Signs and I&O:
Vital Signs
Temp Pulse Resp BP Pulse Ox
98.1 F 71 16 120/67 94
08/09/24 08:02 08/09/24 08:02 08/09/24 08:02 08/09/24 08:02 08/09/24 08:02
I&O
08/08/24 08/09/24 08/10/24
06:59 06:59 06:59
Intake Total 840 / 840 1180 / 1180
Balance 840 / 840 1180 / 1180
Physical Exam
Physical Exam
GI: Soft, Distended and Non Tender
--- NOTE | 2024-08-09 11:25 | W.PN.HOSP.TC ---
Today's Communication/Plan
-
IV lasix
trend cr
daily EKG
Hold methadone
Assessment / Plan
Assessment / Plan
General: Other (Chronically ill-appearing male who appears older than stated 39 years. No acute distress.)
HEENT: Other (Poor dentition. MMM. Neck supple.)
Respiratory: Clear; No Wheezes, Rales or Rhonchi
Cardiac: S1/S2, Regular Rhythm and Murmur (II/ NORMA)
GI: Other (Abdomen is markedly distended and firm with pos fluid wave. Indurated along the LLQ area. No rebound / guarding. Pos striae.)
Musculoskeletal: No Clubbing, No Cyanosis and Other (3-4+ pitting edema b/l LEs into the thighs.)
Skin: Jaundice
Neuro: AO x 3
A/P: Patient is a 39y M with PMH significant for Hep C and opioid use disorder who presents to ED complaining of progressive swelling and newly noted jaundice.
Decompensated liver cirrhosis with Ascites and Thrombocytopenia
Anasarca 2/2 above
- Cirrhosis newly appreciated and likely secondary to Hep C.
- IR eval for paracentesis -status post 4 L of fluid removed. Consistent with portal hypertension secondary to liver cirrhosis.
- GI eval for additional recommendations.
- Begin diuretic regimen with IV Lasix daily and spironolactone for now. Aldactone dose increased to 100mg
- Follow I/Os, daily weights, etc.
- ECHO EF of 65 to 70%. Normal regional wall motion. Normal right ventricular size and function. No significant valvular disease. Pleural effusion is present. Ascites present.
- Check chest ultrasound to assess for pleural effusion. Discussed finding with interventional radiology and not much right-sided pleural effusion in the same small perihepatic ascites. No need for thoracentesis.
- will require EGD for variceal screening- per GI. Plan for outpatient.
- Venous doppler LE neg. Compression therapy.
Elevated INR secondary to decompensated liver cirrhosis
-INR mild downtrend 1.77. Per GI recommending vitamin K if persistent uptrend noted.
Hepatitis C
- Initially diagnosed in 2016 - 2017 and likely secondary to prior IVDA.
- GI eval as noted above.
- Would benefit from treatment. Discussed patient prolonged period of time that he needs to seek establish care with blocker automatic as outpatient. Will need to be discussed if he would benefit from hepatitis C treatment and also need to be
considered for transplant evaluation at the [facility] [place]. Patient verbalized understanding about intense follow-up upon discharge.
Opioid Use Disorder
Severely prolonged QTc
- 3-4 years sober and then relapse in February 2024 after father's .
- States no use since that time.
- Follows regularly with methadone clinic.
- Methadone dose confirmed. Prolonged QTc which is improving.. Hold methadone. Oxycodone ordered. Trend EKG. Monitor on telemetry. Check magnesium and other electrolytes. Avoid any other QTc prolonging meds.
Hypoglycemia
-Improvement with aggressive hypoglycemic protocol
-Monitor POC for now.
Anemia and thrombocytopenia secondary to liver cirrhosis
-Start patient on folic acid as levels were low.
-Continue to trend platelets.
DVT Prophylaxis: scds. hold lovenox
Code Status: Full
Will provide with OP PCP resource for closer follow up.
Long-term prognosis guarded.
Anticipated Discharge: > 48 hours
Subjective/Interval History
-
Date of Service: August 09, 2024
resting in bed
states edema is improving
Objective Data
-
Labs:
Laboratory Results
08/09/24
06:16
WBC 4.2 L
Hgb 11.1 L
Hct 30.9 L
Plt Count 54 L
PT 20.8 H
INR 1.77
Sodium 131 L
Potassium 3.7
Chloride 100
Carbon Dioxide 30
BUN 7 L
Creatinine 0.7
Glucose 89
Calcium 7.3 L
Total Bilirubin 1.9 H D
AST 43
ALT 22
Alkaline Phosphatase 88
Vital Signs:
Vital Signs
Temp Pulse Resp BP Pulse Ox
98.1 F 71 16 120/67 94
08/09/24 08:02 08/09/24 08:02 08/09/24 08:02 08/09/24 08:02 08/09/24 08:02
I&O
08/08/24 08/09/24 08/10/24
06:59 06:59 06:59
Intake Total 840 / 840 1180 / 1180
Balance 840 / 840 1180 / 1180
Data Reviewed
-
Total Time Spent with Patient (in minutes): 55
[2024-08-09 11:29] VITALS: BP 109/74
[2024-08-09 11:42] LABS: Glucose - Point of Care 154 mg/dl (70-99)
[2024-08-09 15:40] VITALS: BP 128/72
[2024-08-09 16:35] LABS: Glucose - Point of Care 155 mg/dl (70-99)
[2024-08-09 19:00] VITALS: BP 119/59
[2024-08-09] MEDS: NICODERM TRANSDERMAL 7 MG TRANSDERM (21:10)
[2024-08-09 21:23] LABS: Glucose - Point of Care 116 mg/dl (70-99)
[2024-08-09 23:00] VITALS: BP 113/64
[2024-08-10 03:00] VITALS: BP 113/61
[2024-08-10] MEDS: ROXICODONE 10 MG PO ×2 (03:57→08:30)
[2024-08-10 06:00] VITALS: BMI 34.4
[2024-08-10 07:00] VITALS: BP 107/56
[2024-08-10 07:01] LABS: INR 1.71; PT 20.3 Sec (11.4-14.6)
[2024-08-10 07:05] LABS: % Basophils 0.5 % (0-2); % Eosinophils 5.3 % (0-6); % Immature Granulocytes 0.5 % (0-0.5); % Lymphocytes 25.9 % (20.5-51.1); % Monocytes 15.5 % (1.7-9.3); % Neutrophils 52.3 % (42.2-75.2); Absolute Eosinophils 0.2 10^3/uL (0-0.7); Absolute Monocytes 0.6 10^3/uL (0.1-0.6); Absolute Neutrophils 2.1 10^3/uL (1.4-6.5); Hematocrit 30.7 % (39.0-52.0); Hemoglobin 10.5 g/dL (13.0-18.0); Mean Corp Hgb Conc. 34.2 g/dL (33.0-37.0); Mean Corpuscular Hgb 36.6 pg (27.0-31.0); Mean Platelet Volume 10.7 fL (7.4-10.4); Nucleated Red Blood Cells % 0 % (-); Platelet Count 52 10^3/uL (130-400); Red Blood Cell Count 2.87 10^6/uL (4.70-6.10); Red Cell Dist. Width 14.6 % (11.5-14.5); White Blood Cell Count 3.9 10^3/uL (4.8-10.8)
[2024-08-10 07:24] LABS: ALT (SGPT) 21 U/L (0-50); AST (SGOT) 45 U/L (17-59); Albumin 1.8 g/dl (3.5-5.0); Alkaline Phosphatase 99 U/L (38-126); Blood Urea Nitrogen 6 mg/dl (9-20); Calcium 7.2 mg/dl (8.4-10.2); Carbon Dioxide 29 mmol/L (22-30); Chloride 100 mmol/L (98-107); Estimated Creatinine Clearance > 125 ml/min; Glucose 95 mg/dl (70-99); Potassium 3.6 mmol/L (3.5-5.1); Sodium 132 mmol/L (135-145); Total Bilirubin 1.7 mg/dl (0.2-1.3); Total Protein 5.7 g/dl (6.3-8.2); eGFR > 60.00
[2024-08-10 08:22] LABS: Glucose - Point of Care 253 mg/dl (70-99)
[2024-08-10] MEDS: ALDACTONE 100 MG PO (08:29)
[2024-08-10] MEDS: LASIX 40 MG IV (08:29)
[2024-08-10] MEDS: FOLVITE 1 MG PO (08:33)
[2024-08-10 11:00] VITALS: BP 127/63
--- NOTE | 2024-08-10 12:13 | W.PN.GI.CBS2 ---
Today's Communication / Plan
-
Continue lasix 40mg and aldactone 100mg daily. Would not titrate higher right now
He is moving to [place] but I suggested f/u locally after d/c.
I left contact for Dr Preciado [facility] and Dr Tim Payne (but also sees pts at [facility])
HCV viral load 222,000. Can discuss HCV and OLT eval as outpt
Not much to add at this point. Will sign off. Please call back if needed
Assessment / Plan
-
39 y.o. male with untreated HCV and polysubstance abuse (opoids, heroin) with recent relapse on methadone presents with new onset ascites and LE edema, imaging and labs consistent with decompensated cirrhosis.
Na 134, K 3.7, BUN 8, Cr. 0.7, Glu 50*, Tbili 4.4, Dbili 1.7, AST 52, ALT 26, Alk phos 101, Albumin 2.4, INR 1.65
WBC 7, Hgb 11.5, MCV 109, Plt 75
HAV IgM neg, HBsAg neg, HBcAb neg, HCV Ab+ (VL 222,000IU/mL)
HBsAb positive (reflects immunity)
Acetaminophen level <10
Lipase 171
Vit. B12, Folate pending
TSH 4.64
Paracentesis (08/06):4L removed; Fluid WBC 68, 35 PMNs, Protein <2, Albumin <1, LDH <90, Amylase <30 --> High SAAG, low protein c/w portal HTN
A/P: Decompensated Cirrhosis likely 2/2 untreated HCV c/b thrombocytopenia and ascites
--MELD 3.0 = 22 (08/07)
-- s/p large volume diagnostic/therapeutic paracentesis on 08/06 with removal of 4L ascitic fluid, studies c/w portal HTN
-BUN/Cr. WNL, Started on aldactone 25 mg and lasix 40mg IV yesterday without much output, will give an additional 25 mg aldactone today
-HCC surveillance with AFP + US/MRI q6 months
-Needs EGD for variceal screening-- outpatient
-no evidence of encephalopathy
-INR increased from 1.65 --> 1.89, suspect there is a nutritional component, improved to 1.76. Encourage POs, maintain nutrition
-Outpatient serologic workup for completeness. Acute hepatitis panel reflects immunity to HBV, should have HAV IgG checked to assess need for vaccination
-annual influenza vaccination
-pneumococcal vaccination
-Avoid NSAIDs
-No EtoH use
-Limit Tylenol use to 2g daily
-Avoidance of raw seafood and shellfish
#Hypoglycemia-- concerning, but per patient decreased PO intake cecil. leading up to current admission due to anxiety about medical health and losing his father recently
-improved with PO since arrival
-no signs of acute liver failure
-PO is somewhat challenging due to his dentition; discussed cirrhotic diet, need for high protein, late night snack*
#Prolonged QTc
-Methadone held
Needs to establish care with Hepatology once he moves to [place]. Given his MELD >20, it is unclear if his degree of decompensation will benefit from treatment of his HCV, as studies suggest patients with advanced cirrhosis who receive DAA Therapy
may not achieve significant long-term improvement in liver function. Ideally, liver transplantation. Needs formal outpatient workup and eval prior to consideration of treatment. He expressed understanding and feels committed to establishing
long-term care in [place].
Subjective
Subjective
Date of Service: August 10, 2024
No complaints
Objective
Data Reviewed
Laboratory Data:
Laboratory Results
08/10/24 06:35
08/10/24 06:35
Laboratory Results
PT 20.3 Sec (11.4-14.6) H 08/10/24 06:35
INR 1.71 08/10/24 06:35
Phosphorus 3.3 mg/dl (2.5-4.5) 08/06/24 05:16
Magnesium 1.9 mg/dl (1.6-2.3) 08/08/24 06:45
Total Bilirubin 1.7 mg/dl (0.2-1.3) H 08/10/24 06:35
AST 45 U/L (17-59) 08/10/24 06:35
ALT 21 U/L (0-50) 08/10/24 06:35
Alkaline Phosphatase 99 U/L (38-126) 08/10/24 06:35
Lipase 171 U/L (23-300) 08/05/24 23:36
Vital Signs and I&O:
Vital Signs
Temp Pulse Resp BP Pulse Ox
98.2 F 71 16 127/63 97
08/10/24 11:00 08/10/24 11:00 08/10/24 11:00 08/10/24 11:00 08/10/24 11:00
I&O
08/09/24 08/10/24 08/11/24
06:59 06:59 06:59
Intake Total 1180 / 1180 840 / 840
Balance 1180 / 1180 840 / 840
Physical Exam
Physical Exam
GI: Soft, Distended and Non Tender
--- NOTE | 2024-08-10 12:16 | W.PN.HOSP.TC ---
Today's Communication/Plan
-
restart methadone-Qtc normalized
Diuretics
US abd to assess for ascites
Assessment / Plan
Assessment / Plan
General: Other (Chronically ill-appearing male who appears older than stated 39 years. No acute distress.)
HEENT: Other (Poor dentition. MMM. Neck supple.)
Respiratory: Clear; No Wheezes, Rales or Rhonchi
Cardiac: S1/S2, Regular Rhythm and Murmur (II/ NORMA)
GI: Other (Abdomen is markedly distended and firm with pos fluid wave. Indurated along the LLQ area. No rebound / guarding. Pos striae.)
Musculoskeletal: No Clubbing, No Cyanosis and Other (3-4+ pitting edema b/l LEs into the thighs.)
Skin: Jaundice
Neuro: AO x 3
A/P: Patient is a 39y M with PMH significant for Hep C and opioid use disorder who presents to ED complaining of progressive swelling and newly noted jaundice.
Decompensated liver cirrhosis with Ascites and Thrombocytopenia
Anasarca 2/2 above
- Cirrhosis newly appreciated and likely secondary to Hep C.
- IR eval for paracentesis -status post 4 L of fluid removed. Consistent with portal hypertension secondary to liver cirrhosis.
- GI eval for additional recommendations.
- Begin diuretic regimen with IV Lasix daily and spironolactone for now. Aldactone dose increased to 100mg. Plan to transition to po 40mg lasix in am
- Follow I/Os, daily weights, etc.
- ECHO EF of 65 to 70%. Normal regional wall motion. Normal right ventricular size and function. No significant valvular disease. Pleural effusion is present. Ascites present.
- Check chest ultrasound to assess for pleural effusion. Discussed finding with interventional radiology and not much right-sided pleural effusion in the same small perihepatic ascites. No need for thoracentesis.
- will require EGD for variceal screening- per GI. Plan for outpatient.
- Venous doppler LE neg. Compression therapy.
- Abd US to assess for ascites
Elevated INR secondary to decompensated liver cirrhosis
-INR downtrending. Per GI recommending vitamin K if persistent uptrend noted.
Hepatitis C
- Initially diagnosed in 2016 - 2017 and likely secondary to prior IVDA.
- GI eval as noted above.
- Would benefit from treatment. Discussed patient prolonged period of time that he needs to seek establish care with senior buyer as outpatient. Will need to be discussed if he would benefit from hepatitis C treatment and also need to be
considered for transplant evaluation at the [facility]. Patient verbalized understanding about intense follow-up upon discharge.
Opioid Use Disorder
Severely prolonged QTc
- 3-4 years sober and then relapse in February 2024 after father's .
- States no use since that time.
- Follows regularly with methadone clinic.
- Methadone dose confirmed. Qtc downtrended to 447. Restart methadone.
Hypoglycemia
-Improvement with aggressive hypoglycemic protocol
-Monitor POC for now.
Anemia and thrombocytopenia secondary to liver cirrhosis
-Start patient on folic acid as levels were low.
-Continue to trend platelets.
DVT Prophylaxis: scds. hold lovenox
Code Status: Full
Will provide with OP PCP resource for closer follow up.
Long-term prognosis guarded.
Anticipated Discharge: 24 - 48 hours
Subjective/Interval History
-
Date of Service: August 10, 2024
states edema is improving
states losing weight
Objective Data
-
Labs:
Laboratory Results
08/10/24
06:35
WBC 3.9 L
Hgb 10.5 L
Hct 30.7 L
Plt Count 52 L
PT 20.3 H
INR 1.71
Sodium 132 L
Potassium 3.6
Chloride 100
Carbon Dioxide 29
BUN 6 L
Creatinine 0.7
Glucose 95
Calcium 7.2 L
Total Bilirubin 1.7 H
AST 45
ALT 21
Alkaline Phosphatase 99
Vital Signs:
Vital Signs
Temp Pulse Resp BP Pulse Ox
98.2 F 71 16 127/63 97
08/10/24 11:00 08/10/24 11:00 08/10/24 11:00 08/10/24 11:00 08/10/24 11:00
I&O
08/09/24 08/10/24 08/11/24
06:59 06:59 06:59
Intake Total 1180 / 1180 840 / 840
Balance 1180 / 1180 840 / 840
Data Reviewed
-
Total Time Spent with Patient (in minutes): 55
[2024-08-10 12:26] LABS: Glucose - Point of Care 128 mg/dl (70-99)
[2024-08-10] MEDS: METHADONE 100 MG/10 ML 150 MG PO (13:00)
[2024-08-10 15:00] VITALS: BP 122/59
[2024-08-10 16:34] LABS: Glucose - Point of Care 255 mg/dl (70-99)
--- NOTE | 2024-08-10 18:00 | PTCARENOTE ---
Patient with accuchecks in the 200's during shift, MD made aware- no new orders. Pt noted to have snacks/sugary drinks as well as a large pizza box and other take out food in room. Methadone restarted this shift.
[2024-08-10] MEDS: NICODERM TRANSDERMAL 7 MG TRANSDERM (21:15)
[2024-08-10 21:25] LABS: Glucose - Point of Care 83 mg/dl (70-99)
[2024-08-10 23:00] VITALS: BP 112/58
[2024-08-11 06:00] VITALS: BMI 34.1
[2024-08-11 07:33] VITALS: BP 105/60
[2024-08-11 07:43] LABS: INR 1.74; PT 20.5 Sec (11.4-14.6)
[2024-08-11 07:47] LABS: % Basophils 0.9 % (0-2); % Eosinophils 7.1 % (0-6); % Immature Granulocytes 0.5 % (0-0.5); % Lymphocytes 25.3 % (20.5-51.1); % Neutrophils 52.2 % (42.2-75.2); Absolute Eosinophils 0.3 10^3/uL (0-0.7); Absolute Lymphocytes 1.1 10^3/uL (1.2-3.4); Absolute Monocytes 0.6 10^3/uL (0.1-0.6); Absolute Neutrophils 2.3 10^3/uL (1.4-6.5); Hematocrit 32.4 % (39.0-52.0); Mean Corpuscular Hgb 36.4 pg (27.0-31.0); Mean Corpuscular Volume 107.3 fL (80.0-94.0); Mean Platelet Volume 11.5 fL (7.4-10.4); Nucleated Red Blood Cells % 0 % (-); Platelet Count 56 10^3/uL (130-400); Red Blood Cell Count 3.02 10^6/uL (4.70-6.10); Red Cell Dist. Width 14.6 % (11.5-14.5); White Blood Cell Count 4.4 10^3/uL (4.8-10.8)
[2024-08-11 07:52] LABS: Glucose - Point of Care 92 mg/dl (70-99)
--- NOTE | 2024-08-11 08:01 | W.PN.HOSP.TC ---
Today's Communication/Plan
-
IRAD for paracentesis
monitor BP
cont po methadone
po diuretics
Assessment / Plan
Assessment / Plan
General: Other (Chronically ill-appearing male who appears older than stated 39 years. No acute distress.)
HEENT: Other (Poor dentition. MMM. Neck supple.)
Respiratory: Clear; No Wheezes, Rales or Rhonchi
Cardiac: S1/S2, Regular Rhythm and Murmur (II/ NORMA)
GI: Other (Abdomen is distended and with pos fluid wave. No rebound / guarding. Pos striae.)
Musculoskeletal: No Clubbing, No Cyanosis and LE edema is improving
Skin: Jaundice
Neuro: AO x 3
A/P: Patient is a 39y M with PMH significant for Hep C and opioid use disorder who presents to ED complaining of progressive swelling and newly noted jaundice.
Decompensated liver cirrhosis with Ascites and Thrombocytopenia
Anasarca 2/2 above
- Cirrhosis newly appreciated and likely secondary to Hep C.
- IR eval for paracentesis -status post 4 L of fluid removed. Consistent with portal hypertension secondary to liver cirrhosis.
- GI eval for additional recommendations.
- Begin diuretic regimen with IV Lasix daily and spironolactone for now. Aldactone dose increased to 100mg. Plan to transition to po 40mg lasix
- Follow I/Os, daily weights, etc.
- ECHO EF of 65 to 70%. Normal regional wall motion. Normal right ventricular size and function. No significant valvular disease. Pleural effusion is present. Ascites present.
- Check chest ultrasound to assess for pleural effusion. Discussed finding with interventional radiology and not much right-sided pleural effusion in the same small perihepatic ascites. No need for thoracentesis.
- will require EGD for variceal screening- per GI. Plan for outpatient.
- Venous doppler LE neg. Compression therapy.
- Abd US to assess for ascites -will ask IRAD for paracentesis.
Elevated INR secondary to decompensated liver cirrhosis
-INR downtrending. Per GI recommending vitamin K if persistent uptrend noted.
Hepatitis C
- Initially diagnosed in 2016 - 2017 and likely secondary to prior IVDA.
- GI eval as noted above.
- Would benefit from treatment. Discussed patient prolonged period of time that he needs to seek establish care with woven blind loom tender as outpatient. Will need to be discussed if he would benefit from hepatitis C treatment and also need to be
considered for transplant evaluation at the [facility]. Patient verbalized understanding about intense follow-up upon discharge.
Opioid Use Disorder
Severely prolonged QTc
- 3-4 years sober and then relapse in February 2024 after father's .
- States no use since that time.
- Follows regularly with methadone clinic.
- Methadone dose confirmed. Qtc downtrended. Restart methadone. No need to further downtrend for now.
Hypoglycemia
-Improvement with aggressive hypoglycemic protocol
-Monitor POC for now.
Anemia and thrombocytopenia secondary to liver cirrhosis
-Start patient on folic acid as levels were low.
-Continue to trend platelets.
DVT Prophylaxis: scds. hold lovenox
Code Status: Full
Will provide with OP PCP resource for closer follow up.
Long-term prognosis guarded.
Anticipated Discharge: 24 - 48 hours
Subjective/Interval History
-
Date of Service: August 11, 2024
improvement in edema LE
states of abd distention
Objective Data
-
Labs:
Laboratory Results
08/11/24
07:00
WBC 4.4 L
Hgb 11.0 L
Hct 32.4 L
Plt Count 56 L
PT 20.5 H
INR 1.74
Sodium Pending
Potassium Pending
Chloride Pending
Carbon Dioxide Pending
BUN Pending
Creatinine Pending
Glucose Pending
Calcium Pending
Total Bilirubin Pending
AST Pending
ALT Pending
Alkaline Phosphatase Pending
Vital Signs:
Vital Signs
Temp Pulse Resp BP Pulse Ox
97.8 F 70 17 105/60 95
08/11/24 07:33 08/11/24 07:33 08/11/24 07:33 08/11/24 07:33 08/11/24 07:33
I&O
08/10/24 08/11/24 08/12/24
06:59 06:59 06:59
Intake Total 840 / 840 800 / 800
Balance 840 / 840 800 / 800
Data Reviewed
-
Total Time Spent with Patient (in minutes): 55
[2024-08-11 08:07] LABS: ALT (SGPT) 24 U/L (0-50); AST (SGOT) 51 U/L (17-59); Albumin 1.9 g/dl (3.5-5.0); Alkaline Phosphatase 89 U/L (38-126); Blood Urea Nitrogen 5 mg/dl (9-20); Calcium 7.3 mg/dl (8.4-10.2); Carbon Dioxide 28 mmol/L (22-30); Chloride 101 mmol/L (98-107); Estimated Creatinine Clearance > 125 ml/min; Glucose 92 mg/dl (70-99); Potassium 4.2 mmol/L (3.5-5.1); Sodium 132 mmol/L (135-145); Total Bilirubin 1.8 mg/dl (0.2-1.3); Total Protein 5.9 g/dl (6.3-8.2); eGFR > 60.00
[2024-08-11] MEDS: METHADONE 100 MG/10 ML 150 MG PO (08:31)
[2024-08-11] MEDS: FOLVITE 1 MG PO (08:38)
[2024-08-11] MEDS: ALDACTONE 100 MG PO (08:38)
[2024-08-11] MEDS: LASIX 40 MG PO (08:38)
[2024-08-11 11:56] VITALS: BP 110/58; BP_SYST 60
[2024-08-11 13:54] LABS: Body Fluid Mononuclear 78.4 %; Body Fluid Polymorphonuclear 21.6 %; Body Fluid WBC 102 /CUMM
[2024-08-11 13:55] LABS: Body Fluid Second Tech ASW
[2024-08-11] MEDS: FLEXBUMIN 100 IV ×2 (14:33→16:20)
[2024-08-11 15:04] VITALS: BP 115/54
[2024-08-11] MEDS: NICODERM TRANSDERMAL 7 MG TRANSDERM (21:45)
[2024-08-11 23:30] VITALS: BP 91/50
[2024-08-12 00:52] VITALS: BP 106/62
[2024-08-12 06:00] VITALS: BMI 32.3
[2024-08-12 07:05] LABS: INR 1.87; PT 21.6 Sec (11.4-14.6)
[2024-08-12 07:10] LABS: % Basophils 0.6 % (0-2); % Eosinophils 5.8 % (0-6); % Immature Granulocytes 0.3 % (0-0.5); % Lymphocytes 26.5 % (20.5-51.1); % Monocytes 13.5 % (1.7-9.3); % Neutrophils 53.3 % (42.2-75.2); Absolute Eosinophils 0.2 10^3/uL (0-0.7); Absolute Monocytes 0.5 10^3/uL (0.1-0.6); Absolute Neutrophils 1.9 10^3/uL (1.4-6.5); Hematocrit 30.5 % (39.0-52.0); Hemoglobin 10.4 g/dL (13.0-18.0); Mean Corp Hgb Conc. 34.1 g/dL (33.0-37.0); Mean Corpuscular Hgb 36.6 pg (27.0-31.0); Mean Corpuscular Volume 107.4 fL (80.0-94.0); Nucleated Red Blood Cells % 0 % (-); Platelet Count 50 10^3/uL (130-400); Red Blood Cell Count 2.84 10^6/uL (4.70-6.10); Red Cell Dist. Width 14.5 % (11.5-14.5); White Blood Cell Count 3.6 10^3/uL (4.8-10.8)
[2024-08-12 07:19] VITALS: BP 113/54
[2024-08-12 07:35] LABS: ALT (SGPT) 20 U/L (0-50); AST (SGOT) 46 U/L (17-59); Albumin 2.1 g/dl (3.5-5.0); Alkaline Phosphatase 77 U/L (38-126); Blood Urea Nitrogen 6 mg/dl (9-20); Calcium 7.4 mg/dl (8.4-10.2); Carbon Dioxide 27 mmol/L (22-30); Chloride 103 mmol/L (98-107); Estimated Creatinine Clearance > 125 ml/min; Glucose 88 mg/dl (70-99); Potassium 4.4 mmol/L (3.5-5.1); Sodium 134 mmol/L (135-145); Total Bilirubin 1.7 mg/dl (0.2-1.3); Total Protein 5.6 g/dl (6.3-8.2); eGFR > 60.00
[2024-08-12] MEDS: METHADONE 100 MG/10 ML 150 MG PO (07:46)
[2024-08-12] MEDS: FOLVITE 1 MG PO (07:46)
[2024-08-12] MEDS: LASIX 40 MG PO (07:47)
[2024-08-12] MEDS: ALDACTONE 100 MG PO (07:47)
--- NOTE | 2024-08-12 11:13 | W.PN.HOSP.TC ---
Addendum entered and electronically signed by Aman Toscano MD 08/12/24 12:52:
mild hyponatremia
pancytopenia
Original Note:
Today's Communication/Plan
-
po diuretics
OP close f/u with pcp
Assessment / Plan
Assessment / Plan
General: Other (Chronically ill-appearing male who appears older than stated 39 years. No acute distress.)
HEENT: Other (Poor dentition. MMM. Neck supple.)
Respiratory: Clear; No Wheezes, Rales or Rhonchi
Cardiac: S1/S2, Regular Rhythm and Murmur (II/ NORMA)
GI: Other (Abdomen is distended and with pos fluid wave. No rebound / guarding. Pos striae.)
Musculoskeletal: No Clubbing, No Cyanosis and LE edema is improving
Skin: Jaundice
Neuro: AO x 3
A/P: Patient is a 39y M with PMH significant for Hep C and opioid use disorder who presents to ED complaining of progressive swelling and newly noted jaundice.
Decompensated liver cirrhosis with Ascites and Thrombocytopenia
Anasarca 2/2 above
- Cirrhosis newly appreciated and likely secondary to Hep C.
- IR eval for paracentesis -status post 4 L of fluid removed. Consistent with portal hypertension secondary to liver cirrhosis.
- GI eval for additional recommendations.
- Begin diuretic regimen with IV Lasix daily and spironolactone for now. Aldactone dose increased to 100mg. Plan to transition to po 40mg lasix
- Follow I/Os, daily weights, etc.
- ECHO EF of 65 to 70%. Normal regional wall motion. Normal right ventricular size and function. No significant valvular disease. Pleural effusion is present. Ascites present.
- Check chest ultrasound to assess for pleural effusion. Discussed finding with interventional radiology and not much right-sided pleural effusion in the same small perihepatic ascites. No need for thoracentesis.
- will require EGD for variceal screening- per GI. Plan for outpatient.
- Venous doppler LE neg. Compression therapy.
- Abd US to assess for ascites -s/p repaet paracentesis. on 08/11 with 5.4L removed s/p 50mg albumin. Fluid negatieve for infection
Elevated INR secondary to decompensated liver cirrhosis
-INR noted.
Hepatitis C
- Initially diagnosed in 2016 - 2017 and likely secondary to prior IVDA.
- GI eval as noted above.
- Would benefit from treatment. Discussed patient prolonged period of time that he needs to seek establish care with floral design teacher as outpatient. Will need to be discussed if he would benefit from hepatitis C treatment and also need to be
considered for transplant evaluation at the [facility]. Patient verbalized understanding about intense follow-up upon discharge.
Opioid Use Disorder
Severely prolonged QTc
- 3-4 years sober and then relapse in February 2024 after father's .
- States no use since that time.
- Follows regularly with methadone clinic.
- Methadone dose confirmed. Qtc downtrended. Restart methadone. No need to further downtrend for now.
Hypoglycemia
-Improvement with aggressive hypoglycemic protocol
-Monitor POC for now.
Anemia and thrombocytopenia secondary to liver cirrhosis
-Start patient on folic acid as levels were low.
-Continue to trend platelets. Plt improved.
DVT Prophylaxis: scds. hold lovenox
Code Status: Full
Long-term prognosis guarded.
More than 30 minutes spent in discharge including
Final examination of the patient
Summarizing hospital stay
Instructions for continuing care to all relevant caregivers
Preparation of discharge records, prescriptions, and referral forms
Total time spent (in minutes): 55
Anticipated Discharge: Today
Subjective/Interval History
-
Date of Service: August 12, 2024
tolerating diet
states less abd distention
Objective Data
-
Labs:
Laboratory Results
08/12/24
06:39
WBC 3.6 L
Hgb 10.4 L
Hct 30.5 L
Plt Count 50 L
PT 21.6 H
INR 1.87
Sodium 134 L
Potassium 4.4
Chloride 103
Carbon Dioxide 27
BUN 6 L
Creatinine 0.6 L
Glucose 88
Calcium 7.4 L
Total Bilirubin 1.7 H
AST 46
ALT 20
Alkaline Phosphatase 77
Vital Signs:
Vital Signs
Temp Pulse Resp BP Pulse Ox
99.0 F 60 17 113/54 96
08/12/24 07:19 08/12/24 07:19 08/12/24 07:19 08/12/24 07:47 08/12/24 08:34
I&O
08/11/24 08/12/24 08/13/24
06:59 06:59 06:59
Intake Total 800 / 800 1919
Balance 800 / 800 1919
--- NOTE | 2024-08-12 11:23 | W.DCSUMMARY ---
Discharge Summary
Discharge Data
Date of Admission: 08/06/24
Date of Discharge: 08/12/24
-
Pending Results: Yes
Additional Pending Results:
Ascitic fluid cytology results with [employer] Administrator or primary doctor.
Hospital Course
Patient is a 39y M with PMH significant for Hep C and opioid use disorder who presents to ED complaining of progressive swelling and newly noted jaundice. Patient was found with new onset of decompensated liver cirrhosis. Patient with history
of hepatitis C which was untreated. Patient underwent paracentesis x 2. Significant amount of fluid was removed. Fluid was negative for infection. Cell cytology resulted and negative for malignancy. Patient also with anasarca and was started on
IV Lasix and Aldactone. Aldactone dose was slowly uptitrated. Patient blood pressure was stable tolerated. Patient with improvement in his edema and IV Lasix was transitioned to 40 mg p.o. Lasix on discharge. Patient also with prolonged QTc
which improved. Since QTc was improved patient was restarted on methadone. Patient stated about moving to [place] however recommended to closely follow-up with field appraiser and pyroglazer locally before moving to complete workup treatment.
Also recommend to follow closely outpatient with primary doctor. Also recommended outpatient to start weaning himself off methadone and marijuana.
Discharge Plan
-
Patient Disposition: Home (Routine Discharge)
Discharge Diagnosis/Procedures: Decompensated liver cirrhosis due to Hepatitis C with ascites and thrombocytopenia and anemia
Ascites status post paracentesis x 2
Anasarca
Prolonged QTc
Pancytopenia
Condition: Fair
Diet: 2 Gram Sodium and Restrict fluids to 48 oz
Activity: As tolerated
Driving Restrictions: As prior to admission
Blood Work: cbc and CMP in 1 week via primary doctor.
Specialty Instructions: Weigh Daily- Call MD for wt gain/loss 3 lbs overnight/5 lbs in 1 week
Activity Restrictions/Additional Instructions:
-Avoid NSAIDs ibuprofen, naproxen, etc
-No alcohol use
-Limit Tylenol use to 2g daily
-Avoidance of raw seafood and shellfish
Instructions: Cirrhosis, Diet for adults with cirrhosis
Referrals:
Malik Mcguire DO [Primary Care Provider] - in less than 1 week
Neymar Dumont MD [Non-Admitting Privileges] - (call to make appt.)
Aditi Jordan DO [Active] - in one to two weeks
Prescriptions:
New
spironolactone 50 mg Tablet
100 mg PO DAILY Qty: 60 0RF
furosemide 40 mg Tablet
40 mg PO DAILY 30 Days Qty: 30 0RF
Continued
Medical Marijuana
1 inh inhalation QIDPRN PRN (Reason: mild pain/anxiety)
methadone liquid
150 mg PO DAILY@1100
Patient Comments:
08/06/23: CONFIRMED dose with [facility]
Discharge Orders:
Discharge Patient (As Directed); Ordered 08/12/24
Ordered By: Aman Toscano
Discharge Date and Time
Discharge Date/Time: 08/12/24 13:49
Print Language: THAI
--- NOTE | 2024-08-12 12:17 | CM ---
Spoke with RN who stated that attending discharged patient and he needs a PCP. He [facility]. Placed a call to the clinic and spoke with a premium representative named, Janae, who stated that she accepts patient's insurance, [employer]. Provided patient with the address and number. He confirmed that he can make the appointment. Patient stated that he is going to transport himself home.
RN updated.
Plan: Case management will continue to follow and assist with discharge planning. Home with f/u at [facility].
--- NOTE | 2024-08-12 12:21 | PN.CDI ---
CDI
- -
CDI:
Physician Documentation Request
Admit Date: 08/06/24 03:41
Dear Doctor Everton,
Please review the following and provide your response in the progress notes.
Clinical Indicators:
Pt admitted with decompensated liver cirrhosis with ascites and thrombocytopenia.
08/12 Progress note: 'Anemia and thrombocytopenia secondary to liver cirrhosis.'
Laboratory Tests
08/10/24 08/11/24 08/12/24
06:35 07:00 06:39
WBC 3.9 L 4.4 L 3.6 L
RBC 2.87 L 3.02 L 2.84 L
Hgb 10.5 L 11.0 L 10.4 L
Plt Count 52 L 56 L 50 L
Based on the above, could you clarify in the progress notes, the appropriate diagnosis, if significant, that supports the above abnormalities and additional evaluation, monitoring and/or treatment rendered:
Pancytopenia
Thrombocytopenia and anemia only
Other
Use of terms such as suspected, likely, concern for, or probable (associated with a specific diagnosis that is being evaluated, monitored, or treated as if it exists) are acceptable and can be coded in the inpatient setting, when documented at the
time of discharge.
Thank you,
Tenisha Villarreal RN, BSN
CDI Specialist
[place] [facility]
Please use your independent medical judgment in providing your response.
--- NOTE | 2024-08-12 12:29 | PN.CDI ---
CDI
- -
CDI:
Physician Documentation Request
Admit Date: 08/06/24 03:41
Dear Doctor Everton,
Please review the following and provide your response in the progress notes.
Clinical Indicators:
Pt admitted with decompensated liver cirrhosis with ascites and thrombocytopenia.
Laboratory Tests
08/08/24 08/09/24 08/10/24
06:45 06:16 06:35
Sodium 131 L 131 L 132 L
Based on the above, could you clarify in the progress notes, the appropriate diagnosis, if significant, that supports the above abnormalities and additional evaluation, monitoring and/or treatment rendered:
Hyponatremia
Insignificant abnormal lab values
Other
Use of terms such as suspected, likely, concern for, or probable (associated with a specific diagnosis that is being evaluated, monitored, or treated as if it exists) are acceptable and can be coded in the inpatient setting, when documented at the
time of discharge.
Thank you,
Tenisha Villarreal RN, BSN
CDI Specialist
[place] [employer]
Please use your independent medical judgment in providing your response.
[2024-08-12 13:06] VITALS: BP 121/52
== END 2024-08-12 13:49 | disposition home or self-care (01) | DRG 433 ==
LOC: 3 WEST ACU 03:41
PROVIDERS: Nurse Practitioner Adult Health; Physician Assistant; Radiology Vascular & Interventional Radiology; Specialist; ADMITTING PHYSICIAN Hospitalist; ATTENDING PHYSICIAN Hospitalist; EMERGENCY PHYSICIAN Student in an Organized Health Care Education/Training Program; OTHER PHYSICIAN Internal Medicine; PRIMARYCARE PHYSICIAN Student in an Organized Health Care Education/Training Program
PROC: 0W9G3ZZ Drainage of Peritoneal Cavity, Percutaneous Approach (ICD-10-PCS; 2024-08-06)
PROC: 0W9G3ZX Drainage of Peritoneal Cavity, Percutaneous Approach, Diagnostic (ICD-10-PCS; 2024-08-11)
DX: K74.60 Unspecified cirrhosis of liver (principal); D61.818 Other pancytopenia; R18.8 Other ascites; E87.1 Hypo-osmolality and hyponatremia; Z59.01 Sheltered homelessness; J90 Pleural effusion, not elsewhere classified; D68.9 Coagulation defect, unspecified; F17.200 Nicotine dependence, unspecified, uncomplicated; B19.20 Unspecified viral hepatitis C without hepatic coma; F11.90 Opioid use, unspecified, uncomplicated; F90.9 Attention-deficit hyperactivity disorder, unspecified type; F31.9 Bipolar disorder, unspecified; F41.9 Anxiety disorder, unspecified; F14.10 Cocaine abuse, uncomplicated; Z63.4 Disappearance and death of family member; D53.9 Nutritional anemia, unspecified; E88.09 Other disorders of plasma-protein metabolism, not elsewhere classified; K57.30 Diverticulosis of large intestine without perforation or abscess without bleeding
CPT/HCPCS: 88305; 49083; 71046; 74177; 76604; 76705; 80053; 80143; 80306; 80307; 82042; 82140; 82150; 82248; 82607; 82728; 82746; 82962; 83036; 83540; 83550; 83605; 83615; 83690; 83735; 83880; 84100; 84157; 84443; 85025; 85027; 85610; 85652; 86140; 86704; 86706; 86709; 86803; 87015; 87070; 87147; 87205; 87340; 87522; 88112; 88341; 88342; 89051; 93005; 93306; 93970; P9047; Q9967